=== PATIENT | female | born 1935 | race Caucasian/White ===

== ENCOUNTER 2017-11-06 10:18 | Inpatient (IN) ==
[2017-11-06] MEDS ORDERED: 0.9 % Sodium Chloride 1,000 ML IVC ONE ×2 (10:30→19:46)
[2017-11-06 11:10] LABS: Red Cell Distribution Width 17.9 % (11.5-14.5)
[2017-11-06 11:12] LABS: Hematocrit 19.3 % (35.3-44.9); Lymphocytes # 0.6 K/mcL (0.6-4.6); Mean Corpuscular HGB Conc 30.1 g/dL (31.6-35.5); Mean Corpuscular Hemoglobin 29.3 pg (28.0-33.3); Mean Corpuscular Volume 97.5 fL (83.0-100.0); Mean Platelet Volume 11.3 fL (9.4-12.4); Platelet Count 231 K/mcL (140-400); Red Blood Count 1.98 M/mcL (3.82-4.97)
[2017-11-06 11:25] LABS: INR 5.8; Prothrombin Time 64.3 Seconds (9.4-12.1)
[2017-11-06 11:28] LABS: Albumin/Globulin Ratio 1.1 (1.1-2.2); Bilirubin,Total 0.3 mg/dL (0.3-1.0); Calcium 8.7 mg/dL (8.6-10.3); Globulin 2.7 g/dL (2.4-3.5); Magnesium 2.2 mg/dL (1.6-2.6); Potassium 3.7 mEq/L (3.5-5.1); Total Protein 5.7 g/dL (6.4-8.9)
[2017-11-06 11:32] LABS: Hemoglobin 5.8 g/dL (11.5-15.4)
--- NOTE | 2017-11-06 11:45 | Emergency Department Note ---
Disposition Clinical Impression: Severe anemia, Elevated troponin I level, Anemia due to blood loss GI bleed Qualifiers: GI bleed type/associated pathology: melena Qualified Code(s): K92.1 - Melena Fracture, ribs Qualifiers: Encounter type: initial encounter Rib fracture type: multiple ribs Fracture type: closed Laterality: right Qualified Code(s): S22.41XA - Multiple fractures of ribs, right side, initial encounter for closed fracture Disposition: Admitted As Inpatient Condition: Serious Time of Disposition: 15:24 General Adult HPI - General Chief complaint: ED Dizziness Stated complaint: dizzy Time Seen by Provider: 11/06/17 10:30 Source: patient, EMS Limitations: physical limitation Nursing Notes Reviewed: Yes Vital Signs Reviewed: Yes - History of Present Illness HPI Narrative: 82-year-old female presents after fall at home secondary to dizziness. Patient fell down on her bottom. Did not hit her head, no loss of consciousness. Patient has a history of uterine cancer, lung cancer and bladder cancer. Patient's been complaining of black stools for the past several days. Patient denies any abdominal pain. Pain Scale: 2 - Related Data Home Medications Medication Instructions Recorded Confirmed Albuterol Sulfate [Albuterol 2 puff IH Q4H PRN 11/06/17 11/06/17 Inhaler] Calcitriol [Rocaltrol] 0.25 mcg PO Q48H 11/06/17 11/06/17 Cyanocobalamin (Vitamin B-12) 1,000 mcg PO DAILY 11/06/17 11/06/17 [Vitamin B12] Ergocalciferol (VITAMIN D2) 50,000 unit PO QWEEK 11/06/17 11/06/17 [Vitamin D2] Fluticasone Propionate [Flovent 1 puff IH BID 11/06/17 11/06/17 Hfa] Montelukast [Singulair] 10 mg PO DAILY 11/06/17 11/06/17 Omeprazole [PriLOSEC] 20 mg PO DAILY 11/06/17 11/06/17 Salmeterol Xinafoate [Serevent 1 puff IH Q12H 11/06/17 11/06/17 Diskus] Warfarin [Coumadin] 3 mg PO DAILY 11/06/17 11/06/17 Allergies Allergy/AdvReac Type Severity Reaction Status Date / Time Penicillins Allergy See Verified 12/04/16 11:00 Comments prednisone Allergy See Verified 12/04/16 11:00 Comments All systems ED: reviewed and negative except as stated. Review of Systems: As Per HPI Constitutional: Reports: weakness. Denies: fever Eyes: Denies: vision change ENT ED: Denies: congestion Cardiovascular: Denies: palpitations Respiratory: Denies: cough, dyspnea, wheezes, hemoptysis Gastrointestinal: Denies: abdominal pain, nausea, vomiting Genitourinary: Reports: hematuria. Denies: urgency, dysuria Musculoskeletal: Denies: back pain Integumentary: Denies: rash Neurological: Denies: headache Psychiatric: Denies: anxiety Endocrine: Reports: fatigue Past Medical History - Past Medical History Attestation: Yes The following information was validated with the patient. Source: patient, nursing notes reviewed Medical history: Reports: cancer, DVT, hypertension, pulmonary embolus Surgical history: Reports: cancer surgery, IVC filter Psychiatric history: Reports: no psych history - Social History Smoking Status: Former smoker Smokeless Tobacco Status: No Alcohol use: Reports: none Drug use: Reports: none Physical Exam Vital Signs Temperature 97.4 F L 11/06/17 10:22 Pulse Rate 87 11/06/17 10:22 Respiratory Rate 18 11/06/17 10:22 Blood Pressure 120/66 11/06/17 10:22 O2 Sat by Pulse Oximetry 98 11/06/17 10:22 Temperature 97.8 F 11/06/17 15:11 Pulse Rate 91 11/06/17 15:11 Respiratory Rate 20 11/06/17 15:11 Blood Pressure 138/72 11/06/17 15:11 O2 Sat by Pulse Oximetry 100 11/06/17 13:59 Oxygen Delivery Oxygen Delivery Nasal Cannula 82-year-old female who is alert and oriented 3 and GCS of 15 and in no acute distress. Patient has some visible pallor but nontoxic appearing. Patient's shoulder tenderness to palpation and tender sacrum to palpation. - General Limitations: no limitations, physical limitation General appearance: alert, in no apparent distress - Head Head exam: atraumatic, normocephalic, normal inspection - Eye Eye exam: Present: normal appearance, PERRL, EOMI - ENT ENT exam: normal exam, normal oropharynx, mucous membranes moist - Neck Neck exam: Present: normal inspection, full ROM, trachea midline - Chest Chest inspection: Present: normal inspection, symmetric chest wall rise - Respiratory Respiratory exam: Present: normal lung sounds bilaterally - Cardiovascular Cardiovascular exam: Present: regular rate, normal rhythm, normal heart sounds - Abdominal Exam Abdominal exam: Present: soft, Non-Tender. Absent: tenderness, distention, guarding, rebound, rigidity - Rectal Exam [employer] Operator present during exam: Yes Rectal exam: Present: normal rectal tone, heme (+) stool, black stool, hemorrhoids - Extremities Exam Extremities exam: Present: normal inspection, full ROM. Absent: tenderness, pedal edema - Back Exam Back exam: Present: normal inspection, full ROM. Absent: tenderness, CVA tenderness (R), CVA tenderness (L) Course - Consultations Consultation #1: Dr. Purvis of gastroenterology was brought to speed on the patient's condition. He knows it patient has GI bleed is on Coumadin and has a supratherapeutic INR Time: 15:06 Vital Signs Temperature 97.4 F L 11/06/17 10:22 Pulse Rate 87 11/06/17 10:22 Respiratory Rate 18 11/06/17 10:22 Blood Pressure 120/66 11/06/17 10:22 O2 Sat by Pulse Oximetry 98 11/06/17 10:22 Temperature 97.9 F 11/06/17 15:26 Pulse Rate 90 11/06/17 15:26 Respiratory Rate 20 11/06/17 15:26 Blood Pressure 126/55 11/06/17 15:26 O2 Sat by Pulse Oximetry 99 11/06/17 15:26 Oxygen Delivery Oxygen Delivery Nasal Cannula Medical Decision Making - [facility] Narrative Medical decision making narrative: Patient presents after a fall instigated by dizziness at home. Patient did not hit her head. Patient came down on her bottom. Patient has a history of osteoporosis. Imaging of T-spine L spine, ribs and pelvis ordered. Patient does have a significant history of neoplasm of the uterus, lung status post lobectomy and bladder currently under treatment. Patient also has history of osteoporosis. Physical exam showed melanotic stool. Fecal occult blood test positive. X-ray shows: Decreased bone mineral density. Questionable nondisplaced right anterior 8th and 9th rib fractures. Hemoglobin came back 5.6. Transfusion 2 units RBCs ordered. Patient still doing well. Delay and management secondary to unable to get peripheral line. Par glide ordered and installed. Treatment has been initiated at IVs normosaline 2 L. PT/INR shows a supratherapeutic INR of 5.8. Patient also has an elevated troponin 0.04 Patient still not having any pain. Plan is for admission. Patient excepts decision for admission Dr. Galarza the hospital as accepted patient for admission Dr. Tripathi of gastroenterology is on board. - Lab Data Lab results reviewed: Yes I reviewed the patient's lab results. Lab results narrative: Short CBC 11/06/17 Range/Units 11:00 WBC 9.4 (4.3-11.1) K/mcL Hgb 5.8 L* (11.5-15.4) g/dL Hct 19.3 L (35.3-44.9) % Plt Count 231 (140-400) K/mcL Neutrophils # 7.9 (1.6-8.9) K/mcL BMP 11/06/17 Range/Units 11:00 Sodium 136 (136-145) mEq/L Potassium 3.7 (3.5-5.1) mEq/L Chloride 103 (98-107) mEq/L Carbon Dioxide 26 (23-29) mEq/L BUN 52 H (8-23) mg/dL Creatinine 2.76 H (0.60-1.20) mg/dL Glucose 194 H (70-105) mg/dL Calcium 8.7 (8.6-10.3) mg/dL Cardiac Enzymes 11/06/17 Range/Units 11:00 Troponin I 0.04 H* (< 0.04) ng/mL Liver Function 11/06/17 Range/Units 11:00 Total Bilirubin 0.3 (0.3-1.0) mg/dL AST 18 (13-39) Units/L ALT 11 (7-52) Units/L Alkaline Phosphatase 54 (34-104) Units/L Albumin 3.0 L (3.5-5.7) g/dL Urine 11/06/17 Range/Units 13:43 Urine Color Yellow (Yellow) Urine Clarity Turbid A (Clear) Urine pH 5.5 (5.0-8.0) pH Units Ur Specific [place] 1.018 (1.010-1.025) Urine Protein 100 H (Neg-Trace) mg/dL Urine Glucose (UA) Normal (Normal) mg/dL Result diagrams: 11/06/17 11:00 12/19/17 11:00 Lab Results 11/06/17 11/06/17 11/06/17 Range/Units 10:28 11:00 11:00 WBC (4.3-11.1) K/mcL RBC (3.82-4.97) M/mcL Hgb (11.5-15.4) g/dL Hct (35.3-44.9) % MCV (83.0-100.0) fL MCH (28.0-33.3) pg MCHC (31.6-35.5) g/dL RDW (11.5-14.5) % Plt Count (140-400) K/mcL MPV (9.4-12.4) fL Seg Neutrophils % % Lymphocytes % % Monocytes % % Eosinophils % % Neutrophils # (1.6-8.9) K/mcL Lymphocytes # (0.6-4.6) K/mcL Monocytes # (0.0-1.3) K/mcL Eosinophils # (0.0-0.6) K/mcL Platelet Estimate (Normal) Hypochromasia (Not Present) Anisocytosis (Not Present) Microcytosis (Not Present) PT (9.4-12.1) Seconds INR APTT (26.0-36.0) Seconds Sodium 136 (136-145) mEq/L Potassium 3.7 (3.5-5.1) mEq/L Chloride 103 (98-107) mEq/L Carbon Dioxide 26 (23-29) mEq/L BUN 52 H (8-23) mg/dL Creatinine 2.76 H (0.60-1.20) mg/dL Est GFR ( Amer) 20 L (> 60) Est GFR (Non-Af Amer) 16 L (> 60) BUN/Creatinine Ratio 19 (6-26) Glucose 194 H (70-105) mg/dL POC Glucose 167 H (58-89) Calculated Osmolality 301 H (280-300) Lactic Acid 2.2 (0.5-2.2) mmol/L Calcium 8.7 (8.6-10.3) mg/dL Magnesium 2.2 (1.6-2.6) mg/dL Total Bilirubin 0.3 (0.3-1.0) mg/dL AST 18 (13-39) Units/L ALT 11 (7-52) Units/L Alkaline Phosphatase 54 (34-104) Units/L Troponin I (< 0.04) ng/mL Serum Total Protein 5.7 L (6.4-8.9) g/dL Albumin 3.0 L (3.5-5.7) g/dL Globulin 2.7 (2.4-3.5) g/dL Albumin/Globulin Ratio 1.1 (1.1-2.2) Urine Color (Yellow) Urine Clarity (Clear) Urine pH (5.0-8.0) pH Units Ur Specific [place] (1.010-1.025) Urine Protein (Neg-Trace) mg/dL Urine Glucose (UA) (Normal) mg/dL Urine Ketones (Negative) mg/dL Urine Blood (Negative) Urine Nitrite (Negative) Urine Bilirubin (Negative) Urine Urobilinogen (Normal) mg/dL Ur Leukocyte Esterase (Negative) Urine Microscopic RBC (0-3) per hpf Urine Microscopic WBC (0-3) per hpf Ur Squamous Epith Cells (None-Few) per lpf Urine Bacteria (None-Few) per hpf Urine Mucus (Few) Ur Culture Indicated? (NO) Stool Occult Blood (Negative) Blood Type Antibody Screen Crossmatch 11/06/17 11/06/17 11/06/17 Range/Units 11:00 11:00 11:00 WBC 9.4 (4.3-11.1) K/mcL RBC 1.98 L (3.82-4.97) M/mcL Hgb 5.8 L* (11.5-15.4) g/dL Hct 19.3 L (35.3-44.9) % MCV 97.5 (83.0-100.0) fL MCH 29.3 (28.0-33.3) pg MCHC 30.1 L (31.6-35.5) g/dL RDW 17.9 H (11.5-14.5) % Plt Count 231 (140-400) K/mcL MPV 11.3 (9.4-12.4) fL Seg Neutrophils % 84.0 % Lymphocytes % 6.0 % Monocytes % 6.0 % Eosinophils % 4.0 % Neutrophils # 7.9 (1.6-8.9) K/mcL Lymphocytes # 0.6 (0.6-4.6) K/mcL Monocytes # 0.6 (0.0-1.3) K/mcL Eosinophils # 0.4 (0.0-0.6) K/mcL Platelet Estimate Normal (Normal) Hypochromasia Present A (Not Present) Anisocytosis 1+ A (Not Present) Microcytosis Present A (Not Present) PT 64.3 H* (9.4-12.1) Seconds INR 5.8 H* APTT 49.0 H (26.0-36.0) Seconds Sodium (136-145) mEq/L Potassium (3.5-5.1) mEq/L Chloride (98-107) mEq/L Carbon Dioxide (23-29) mEq/L BUN (8-23) mg/dL Creatinine (0.60-1.20) mg/dL Est GFR ( Amer) (> 60) Est GFR (Non-Af Amer) (> 60) BUN/Creatinine Ratio (6-26) Glucose (70-105) mg/dL POC Glucose (58-89) Calculated Osmolality (280-300) Lactic Acid (0.5-2.2) mmol/L Calcium (8.6-10.3) mg/dL Magnesium (1.6-2.6) mg/dL Total Bilirubin (0.3-1.0) mg/dL AST (13-39) Units/L ALT (7-52) Units/L Alkaline Phosphatase (34-104) Units/L Troponin I 0.04 H* (< 0.04) ng/mL Serum Total Protein (6.4-8.9) g/dL Albumin (3.5-5.7) g/dL Globulin (2.4-3.5) g/dL Albumin/Globulin Ratio (1.1-2.2) Urine Color (Yellow) Urine Clarity (Clear) Urine pH (5.0-8.0) pH Units Ur Specific [place] (1.010-1.025) Urine Protein (Neg-Trace) mg/dL Urine Glucose (UA) (Normal) mg/dL Urine Ketones (Negative) mg/dL Urine Blood (Negative) Urine Nitrite (Negative) Urine Bilirubin (Negative) Urine Urobilinogen (Normal) mg/dL Ur Leukocyte Esterase (Negative) Urine Microscopic RBC (0-3) per hpf Urine Microscopic WBC (0-3) per hpf Ur Squamous Epith Cells (None-Few) per lpf Urine Bacteria (None-Few) per hpf Urine Mucus (Few) Ur Culture Indicated? (NO) Stool Occult Blood (Negative) Blood Type Antibody Screen Crossmatch 11/06/17 11/06/17 11/06/17 Range/Units 11:00 11:40 13:43 WBC (4.3-11.1) K/mcL RBC (3.82-4.97) M/mcL Hgb (11.5-15.4) g/dL Hct (35.3-44.9) % MCV (83.0-100.0) fL MCH (28.0-33.3) pg MCHC (31.6-35.5) g/dL RDW (11.5-14.5) % Plt Count (140-400) K/mcL MPV (9.4-12.4) fL Seg Neutrophils % % Lymphocytes % % Monocytes % % Eosinophils % % Neutrophils # (1.6-8.9) K/mcL Lymphocytes # (0.6-4.6) K/mcL Monocytes # (0.0-1.3) K/mcL Eosinophils # (0.0-0.6) K/mcL Platelet Estimate (Normal) Hypochromasia (Not Present) Anisocytosis (Not Present) Microcytosis (Not Present) PT (9.4-12.1) Seconds INR APTT (26.0-36.0) Seconds Sodium (136-145) mEq/L Potassium (3.5-5.1) mEq/L Chloride (98-107) mEq/L Carbon Dioxide (23-29) mEq/L BUN (8-23) mg/dL Creatinine (0.60-1.20) mg/dL Est GFR ( Amer) (> 60) Est GFR (Non-Af Amer) (> 60) BUN/Creatinine Ratio (6-26) Glucose (70-105) mg/dL POC Glucose (58-89) Calculated Osmolality (280-300) Lactic Acid (0.5-2.2) mmol/L Calcium (8.6-10.3) mg/dL Magnesium (1.6-2.6) mg/dL Total Bilirubin (0.3-1.0) mg/dL AST (13-39) Units/L ALT (7-52) Units/L Alkaline Phosphatase (34-104) Units/L Troponin I (< 0.04) ng/mL Serum Total Protein (6.4-8.9) g/dL Albumin (3.5-5.7) g/dL Globulin (2.4-3.5) g/dL Albumin/Globulin Ratio (1.1-2.2) Urine Color Yellow (Yellow) Urine Clarity Turbid A (Clear) Urine pH 5.5 (5.0-8.0) pH Units Ur Specific [place] 1.018 (1.010-1.025) Urine Protein 100 H (Neg-Trace) mg/dL Urine Glucose (UA) Normal (Normal) mg/dL Urine Ketones Negative (Negative) mg/dL Urine Blood Large H (Negative) Urine Nitrite Negative (Negative) Urine Bilirubin Negative (Negative) Urine Urobilinogen Normal (Normal) mg/dL Ur Leukocyte Esterase Moderate H (Negative) Urine Microscopic RBC TNTC H (0-3) per hpf Urine Microscopic WBC TNTC H (0-3) per hpf Ur Squamous Epith Cells Many H (None-Few) per lpf Urine Bacteria Few (None-Few) per hpf Urine Mucus Few (Few) Ur Culture Indicated? NO (NO) Stool Occult Blood Positive A (Negative) Blood Type O POSITIVE Antibody Screen NEGATIVE Crossmatch See Detail - Radiology Data Radiology results reviewed: Yes I reviewed the patient's radiology results. Chest X-Ray 11/06/17 10:30 IMPRESSION: 1. Decreased bone mineral density. Questionable nondisplaced right anterior 8th and 9th rib fractures. 2. No acute pulmonary process. 3. Stable left hemidiaphragm elevation and lung base scarring. D/ / 11/06/2017 11:51:51 Eugene Hernandez MD / sandro Interpreting Provider: Eugene Hernandez MD Lumbar Spine CT 11/06/17 11:40 IMPRESSION: 1. No acute fractures involving the thoracic or lumbar spine. 2. Incompletely imaged left hydronephrosis. I would suggest CT urography for further evaluation. D/ / Akhil Tang MD / Akhil Tang MD Interpreting Provider: Akhil Tang MD Pelvis X-Ray 11/06/17 11:40 IMPRESSION: No acute osseous abnormality. RECOMMENDATION: Given the degree of osteopenia, nondisplaced fractures may be radiographically occult. If pain or concern for fracture persists, consider MR imaging. D/ / Sage Ha MD / Sage Ha MD Interpreting Provider: Sage Ha MD Thoracic Spine CT 11/06/17 11:40 IMPRESSION: 1. No acute fractures involving the thoracic or lumbar spine. 2. Incompletely imaged left hydronephrosis. I would suggest CT urography for further evaluation. D/ / Akhil Tang MD / Akhil Tang MD Interpreting Provider: Akhil Tang MD - EKG Data EKG #1 EKG attestation: Yes I reviewed and interpreted this EKG. EKG results narrative: EKG taken 11/06/2017 at 1033 hrs. shows sinus rhythm at a rate of 89 beats minute with no acute ST elevations any leads, patient has no depressions in these but has T-wave inversion in aVL which is new when compared to previous EKG taken 11/17/2014 Previous EKG shows sinus rhythm at a rate of 74 bpm Attestation Statement - Attestation Attestation: I, Jimmie Mclean, examined this patient and my medical decision-making was reviewed with the BUFF[employer] SERVER/PA/Advanced Practice Nurse/Resident Physician. I agree with the documented findings, disposition and treatment plan as described except to the extent set forth below. 82-year-old female presents emergency Department with concerns of lightheadedness and weakness. Patient states symptoms started this morning. She does describe having dark stools over the past week. States her last melanotic stool was yesterday. On laboratory evaluation patient has a significantly elevated INR as well as anemia of 5.8. Resident performed rectal exam which shows dark stool on exam which was guaiac positive. Resident spoke with Dr. Tripathi from GI who is aware of the patient and will see while in the hospital. Patient vital signs are stable in the emergency department. She will be admitted to the hospitalist for further care and evaluation. Upon reviewing the patient's chart I had noticed she was not started on vitamin K for reversal of the INR. I spoke with Dr. Tripathi regarding this issue and added vitamin K IV.
[2017-11-06 11:46] LABS: Eosinophils # 0.4 K/mcL (0.0-0.6); Monocytes # 0.6 K/mcL (0.0-1.3); Neutrophils # 7.9 K/mcL (1.6-8.9)
[2017-11-06 12:06] LABS: Anisocytosis 1+ (Not Present); Platelet Estimate Normal (Normal)
[2017-11-06 12:07] LABS: Hypochromasia Present (Not Present); Microcytosis Present (Not Present)
[2017-11-06 13:55] LABS: Bilirubin,Urine Negative (Negative); Blood,Urine Large (Negative); Clarity,Urine Turbid (Clear); Color,Urine Yellow (Yellow); Glucose,Urine (UA) Normal (Normal); Ketones,Urine Negative (Negative); Leukocyte Esterase,Urine Moderate (Negative); Nitrite,Urine Negative (Negative); PH,Urine 5.5 pH Units (5.0-8.0); Protein,Urine 100 mg/dL (Neg-Trace); Specific Gravity,Urine 1.018 (1.010-1.025); Urobilinogen,Urine Normal (Normal)
[2017-11-06 13:57] LABS: RBC,Urine TNTC per hpf (0-3); Squamous Epithelial Cell,Urine Many per lpf (None-Few); WBC,Urine TNTC per hpf (0-3)
[2017-11-06 14:05] LABS: Bacteria,Urine Few per hpf (None-Few); Mucus,Urine Few (Few)
[2017-11-06] MEDS ORDERED: 0.9 % Sodium Chloride 250 ML ONE (15:03)
[2017-11-06] MEDS ORDERED: *HR* Phytonadione 5 MG TABLET PO ONE (15:49)
--- NOTE | 2017-11-06 16:01 | Internal Med History&Physical ---
<Moncho Schneider - Last Filed: 11/06/17 17:20> Date of Encounter: 11/06/17 Time of Encounter: 15:54 Assessment and Plan (1) Anemia due to blood loss Current visit: Yes Status: Acute Last known colonoscopy was 2012 and found external hemorrhoids, diverticulosis, and functional ileo-colonic anastamosis. - S/p cecal [place] [address] Parikh Hgb 5.8 Melanotic stools per ER and patient's HPI Taking Warfarin and INR 5.8 today Vital signs stable Plan: Hold anticoagulation T&S, 2 units given in ED Serial H&Hs Vit K and FFP given - will follow NPO IVF Last ECHO was 11/18/2014 with EF 45-50%, mild , severe mitral annular calcification, mild LV diastolic dysfunction and mild global LV systolic dysfunction - Will have to be careful giving more IVF with valvular disease but patient should tolerate with moderately preserved EF GI consulted - Plan for scope tomorrow PPI Cardiac monitoring (2) Supratherapeutic INR Current visit: Yes Status: Acute Taking Coumadin 3mg qd - holding INR 5.8 ED gave vit K Will add FFP and recheck Will follow closely overnight (3) Acute kidney injury superimposed on chronic kidney disease Current visit: Yes Status: Acute CKD stage IV Appears to be above baseline at admission IVF Recheck in the am (4) GERD (gastroesophageal reflux disease) Current visit: Yes Status: Acute Well controlled at this time. IV PPI for now Qualifiers: Esophagitis presence: without esophagitis Qualified Code(s): K21.9 - Gastro -esophageal reflux disease without esophagitis (5) Recurrent deep vein thrombosis (DVT) Current visit: Yes Status: Chronic Patient taking warfarin 3mg daily. Holding at this time (6) COPD (chronic obstructive pulmonary disease) Current visit: Yes Status: Chronic Stable at admission PRN duonebs for now Qualifiers: COPD type: unspecified COPD Qualified Code(s): J44.9 - Chronic obstructive pulmonary disease, unspecified (7) HTN (hypertension) Current visit: Yes Status: Acute Well controlled at this time. No medications for this per EMR Qualifiers: Hypertension type: essential hypertension Qualified Code(s): I10 - Essential (primary) hypertension (8) DVT prophylaxis Current visit: Yes Status: Acute Holding anticoagulation d/t supratherapeutic INR and acute GI bleed EPCDs for now Internal Medicine - H&P: HPI Chief complaint: lighheadedness Admitted From: Home Plans for Post Hospital Care: Home History of present illness: Ms. Jim is a very pleasant 82 year old female with a past medical history of recurrent DVT on Coumadin, uterine/bladder cancer s/p treatment, lung cancer s/p lobectomy, cecal cancer s/p cecal resection, COPD, HTN, GERD, osteoporosis and CKD who presents to the [facility] Emergency Department with a chief complaint of lightheadedness. She states that she had fall at home today after feeling "dizzy". Patient fell to her buttocks. No LOC reported and no history of this previously. On arrival to the emergency department, her vital signs were stable, INR 5.8, PT 64, hgb 5.8 and trop 0.04. Stool occult blood positive with melanotic stools on exam. EKG unremarkable. She was given IVF, 2 units of PRBC and Vit K. GI consulted. On evaluation, she states that she is taking her Warfarin 3mg as directed. She goes on to state that she has been experiencing darl colored stools. No hemoptysis or hematochezia. Last known ECHO was 11/18/2014 with EF 45-50%, mild , severe mitral annular calcification, mild LV diastolic dysfunction and mild global LV systolic dysfunction. Most recent colonscopy was in 2012 and found external hemorrhoids, diverticulosis, and functional ileo-colonic anastamosis. We will admit patient to ICU for further workup and intervention. Past Med Surg Social Fam HX - Past Medical History Medical history: cancer, DVT, hypertension, pulmonary embolus Psychiatric history: no psych history - Past Surgical History Surgical History: cancer surgery, IVC filter - Social History Smoking Status: Former smoker Smokeless Tobacco Status: No Alcohol use: none Drug use: none Internal Medicine - H&P: Meds Albuterol Sulfate [Albuterol Inhaler] 2 puff IH Q4H PRN 11/06/17 [History] Calcitriol [Rocaltrol] 0.25 mcg PO Q48H 11/06/17 [History] Cyanocobalamin (Vitamin B-12) [Vitamin B12] 1,000 mcg PO DAILY 11/06/17 [History ] Ergocalciferol (VITAMIN D2) [Vitamin D2] 50,000 unit PO QWEEK 11/06/17 [History] Fluticasone Propionate [Flovent Hfa] 1 puff IH BID 11/06/17 [History] Montelukast [Singulair] 10 mg PO DAILY 11/06/17 [History] Omeprazole [PriLOSEC] 20 mg PO DAILY 11/06/17 [History] Salmeterol Xinafoate [Serevent Diskus] 1 puff IH Q12H 11/06/17 [History] Warfarin [Coumadin] 3 mg PO DAILY 11/06/17 [History] 3 Allergy/AdvReac Type Severity Reaction Status Date / Time Penicillins Allergy See Verified 12/04/16 11:00 Comments prednisone Allergy See Verified 12/04/16 11:00 Comments All Systems PM: A 10-system review of systems was performed and is negative for pertinent findings except as documented above in the HPI. - EENT Eyes: no blurry vision Nose, mouth and throat: no bleeding gums, no epistaxis - Cardiovascular Cardiovascular ROS IM: no chest pain, no dyspnea - Respiratory Respiratory: no cough - Gastrointestinal Gastrointestinal: abdominal pain (chronic from incisional hernia) - Genitourinary Genitourinary: no dysuria - Musculoskeletal Musculoskeletal ROS IM: arthralgias - Integumentary Integumentary IM: no new lesions - Neurological Neurological ROS: weakness, no frequent falls, no headache(s) - Psychiatric Psychiatric: no behavioral changes - Endocrine Endocrine IM: no fatigue - Hematologic/Lymphatic Hematologic/Lymphatic: easy bruising - Constitutional Vitals: Temp Pulse Resp BP Pulse Ox 97.9 F 90 20 126/55 99 11/06/17 15:26 11/06/17 15:26 11/06/17 15:26 11/06/17 15:26 11/06/17 15:26 General appearance: Present: cooperative, A&O X 3, no acute distress, answers questions appropriately - Head Head exam: Present: atraumatic, normocephalic - Eye Eye exam: Present: EOMI, sclera anicteric. Absent: conjuntiva pink - Neck Neck exam general surgery: Present: supple, trachea midline - Respiratory Respiratory exam: Present: CTAB. Absent: respiratory distress - Cardiovascular Cardiovascular exam: Present: RRR, systolic murmur - GI/Abdominal GI/Abdominal exam: Present: hernia (incisional), normal bowel sounds. Absent: guarding, tenderness - Extremities Exam Extremities exam: Present: warm. Absent: calf tenderness, normal inspection ( ecchymosis), pedal edema, tenderness - Neurological Exam Neurological exam: Present: alert, oriented X3, no focal deficits - Psychiatric Psychiatric exam: Present: normal affect, normal mood - Skin Skin exam: Present: dry, warm. Absent: cyanosis, diaphoretic Internal Med - H&P Results - Labs CBC & Chem 7: 11/06/17 11:00 11/06/17 11:00 <Rogelio Ayala - Last Filed: 11/06/17 18:40> Date of Encounter: 11/06/17 Internal Medicine - H&P: HPI History of present illness: Ms. Jim is a 82 year old female All Systems PM: A 10-system review of systems was performed and is negative for pertinent findings except as documented above in the HPI. - Constitutional Vitals: Temp Pulse Resp BP Pulse Ox 97.6 F 77 20 155/69 97 11/06/17 18:25 11/06/17 18:25 11/06/17 18:25 11/06/17 18:25 11/06/17 18:25 Internal Med - H&P Results - Labs CBC & Chem 7: 11/06/17 11:00 11/06/17 11:00 - Attending Attestation I conducted a face to face diagnostic evaluation of this patient and my medical decision-making was reviewed with the Resident Physician, Dr Moncho Schneider. I agree with the documented findings, disposition and treatment plan as described except to the extent set forth below: Patient reports melena for several weeks. Today she has felt severely dizzy, lightheaded described as spinning sensation, her symptoms have progressively gotten worse over the last few days. Evaluation in the emergency department her hemoglobin was found to be 5.8 and her INR was 5.8. On my evaluation blood pressure is within normal limits. Heart is regular with normal S1 and S2 and a 4/6 diastolic murmur. Abdomen is soft nontender nondistended. Plan: Transfuse FFP and packed red blood cells. Patient received IV vitamin K. Hold antiplatelets and antithrombotic's. Continue nothing by mouth. Consult GI. Rogelio Ayala MD
[2017-11-06] MEDS ORDERED: Ondansetron 4 MG/2 ML VIAL IVP PRN (17:33)
[2017-11-06] MEDS ORDERED: Naloxone 0.4 MG/ML INJ IVP PRN (17:33)
[2017-11-06] MEDS ORDERED: Acetaminophen 325 MG TABLET PO PRN (17:33)
[2017-11-06] MEDS ORDERED: Ipratropium/Albuterol Neb 3 ML IH PRN (17:43)
[2017-11-06] MEDS ORDERED: 0.9 % Sodium Chloride 1,000 ML IVC SCH (17:45)
[2017-11-06] MEDS: Pantoprazole 40 MG VIAL IVPB SCH (18:06)
[2017-11-06] MEDS ORDERED: 0.9 % Sodium Chloride 500 ML ONE (18:42)
[2017-11-07 00:34] LABS: Hematocrit 25.2 % (35.3-44.9)
[2017-11-07 04:33] LABS: Hematocrit 26.3 % (35.3-44.9); Hemoglobin 8.4 g/dL (11.5-15.4); Mean Corpuscular HGB Conc 31.9 g/dL (31.6-35.5); Mean Corpuscular Hemoglobin 30.2 pg (28.0-33.3); Mean Corpuscular Volume 94.6 fL (83.0-100.0); Platelet Count 195 K/mcL (140-400); Red Blood Count 2.78 M/mcL (3.82-4.97); Red Cell Distribution Width 17.2 % (11.5-14.5)
[2017-11-07 04:46] LABS: INR 1.3; Prothrombin Time 13.7 Seconds (9.4-12.1)
[2017-11-07 05:17] LABS: Calcium 8.6 mg/dL (8.6-10.3); Potassium 4.2 mEq/L (3.5-5.1)
[2017-11-07] MEDS: Pantoprazole 40 MG VIAL IVPB SCH ×2 (05:26→17:56)
--- NOTE | 2017-11-07 09:00 | Internal Med Progress Note ---
<Moncho Schneider - Last Filed: 11/07/17 11:32> Date of Encounter: 11/07/17 Time of Encounter: 08:58 - Assessment and plan (1) Anemia due to blood loss Current Visit: Yes Status: Acute Assessment and plan: Last known colonoscopy was 2012 and found external hemorrhoids, diverticulosis, and functional ileo-colonic anastamosis. - S/p cecal [place] [address] Parikh Hgb 5.8 to 8.4 today INR 5.8 down to 1.3 Vital signs stable Plan: Hold anticoagulation until GI consult - Likely scope today NPO IVF PPI Cardiac monitoring director of patient financial services consulted for evaluation with ECF vs HH to aid with medications Transfer to today (2) Supratherapeutic INR Current Visit: Yes Status: Acute Assessment and plan: Taking Coumadin 3mg qd - holding Vit K and FFP given INR 5.8 down to 1.3 (3) Acute kidney injury superimposed on chronic kidney disease Current Visit: Yes Status: Acute Assessment and plan: CKD stage IV Cr improved with 2.76 to 2.38 Will continue to follow (4) GERD (gastroesophageal reflux disease) Current Visit: Yes Status: Acute Assessment and plan: Well controlled at this time. IV PPI for now Qualifiers: Esophagitis presence: without esophagitis Qualified Code(s): K21.9 - Gastro -esophageal reflux disease without esophagitis (5) Recurrent deep vein thrombosis (DVT) Current Visit: Yes Status: Chronic Assessment and plan: Patient taking warfarin 3mg daily. Holding at this time (6) COPD (chronic obstructive pulmonary disease) Current Visit: Yes Status: Chronic Assessment and plan: Appears to be stable at this time PRN jose armando for now Qualifiers: COPD type: unspecified COPD Qualified Code(s): J44.9 - Chronic obstructive pulmonary disease, unspecified (7) HTN (hypertension) Current Visit: Yes Status: Acute Assessment and plan: Well controlled at this time. No medications for this per EMR Qualifiers: Hypertension type: essential hypertension Qualified Code(s): I10 - Essential (primary) hypertension (8) DVT prophylaxis Current Visit: Yes Status: Acute Assessment and plan: Holding anticoagulation d/t supratherapeutic INR and acute GI bleed EPCDs for now - Subjective Interval history: Patient is resting comfortably in bed this morning. No overnight events per nursing. No BM since admission. She has been ambulatory to chair and back to bed last night. Patient is requesting to be discharged. She is agreeable to GI scope today - Constitutional Vitals: Temp Pulse Resp BP Pulse Ox 97.4 F L 74 16 127/78 100 11/07/17 05:01 11/07/17 08:41 11/07/17 08:00 11/07/17 08:00 11/07/17 08:00 General appearance: Present: cooperative, A&O X 3, no acute distress, answers questions appropriately - Head Head exam: Present: atraumatic, normocephalic - Eye Eye exam: Present: EOMI, conjuntiva pink, sclera anicteric - ENT ENT exam: Present: mucous membranes moist - Neck Neck exam general surgery: Present: supple, trachea midline - Respiratory Respiratory exam: Present: CTAB. Absent: respiratory distress - Cardiovascular Cardiovascular exam: Present: RRR, systolic murmur - GI/Abdominal GI/Abdominal exam: Present: hernia (incisional), normal bowel sounds. Absent: tenderness - Extremities Exam Extremities exam: Present: normal inspection, warm. Absent: calf tenderness, tenderness - Neurological Exam Neurological exam: Present: alert, oriented X3, no focal deficits - Psychiatric Psychiatric exam: Present: normal affect, normal mood - Skin Skin exam: Present: dry, warm Internal Medicine: Result - Labs CBC & Chem 7: 11/07/17 04:13 11/07/17 04:13 Labs: Short CBC 11/07/17 11/07/17 Range/Units 00:25 04:13 WBC 9.6 (4.3-11.1) K/mcL Hgb 8.0 L D 8.4 L (11.5-15.4) g/dL Hct 25.2 L 26.3 L (35.3-44.9) % Plt Count 195 (140-400) K/mcL BMP 11/07/17 04:13 Sodium 140 Potassium 4.2 Chloride 105 Carbon Dioxide 30 H BUN 44 H Creatinine 2.38 H Glucose 89 Calcium 8.6 - ABG Interpretation ABG results: PT/INR, D-dimer PT 13.7 Seconds (9.4-12.1) H D 11/07/17 04:13 Consult Discharge Plan - Plan Referrals: Oni Olvera MD [Primary Care Provider] - <Rogelio Ayala - Last Filed: 11/07/17 18:14> Date of Encounter: 11/07/17 - Constitutional Vitals: Temp Pulse Resp BP Pulse Ox 97.4 F L 75 16 129/66 100 11/07/17 16:30 11/07/17 16:22 11/07/17 16:00 11/07/17 16:00 11/07/17 16:00 Internal Medicine: Result - Labs CBC & Chem 7: 11/07/17 04:13 11/07/17 04:13 Labs: Short CBC 11/07/17 11/07/17 Range/Units 00:25 04:13 WBC 9.6 (4.3-11.1) K/mcL Hgb 8.0 L D 8.4 L (11.5-15.4) g/dL Hct 25.2 L 26.3 L (35.3-44.9) % Plt Count 195 (140-400) K/mcL BMP 11/07/17 04:13 Sodium 140 Potassium 4.2 Chloride 105 Carbon Dioxide 30 H BUN 44 H Creatinine 2.38 H Glucose 89 Calcium 8.6 - ABG Interpretation ABG results: PT/INR, D-dimer PT 13.7 Seconds (9.4-12.1) H D 11/07/17 04:13 - Attending Attestation I conducted a face to face diagnostic evaluation of this patient and my medical decision-making was reviewed with the Resident Physician, Dr Moncho Schneider. I agree with the documented findings, disposition and treatment plan as described except to the extent set forth below: Today the patient is in no acute distress. Heart is irregular. Lungs are clear. Abdomen soft. There is incisional right upper quadrant hernia. Follow-up with GI for EGD. Hold Coumadin. Hold antiplatelets. Continue with IV fluids. Nothing by mouth. Protonix. Patient expressed her wish to not receive resuscitation or mechanical ventilation in case of cardiac or respiratory arrest. Upon my evaluation she has decision-making capacity. Rogelio Ayala MD
[2017-11-07] MEDS ORDERED: Ondansetron 4 MG/2 ML VIAL IVP PRN (11:50)
[2017-11-07] MEDS ORDERED: Ipratropium/Albuterol Neb 3 ML IH PRN (11:50)
[2017-11-07] MEDS ORDERED: Acetaminophen 325 MG TABLET PO PRN (11:50)
[2017-11-07] MEDS ORDERED: Naloxone 0.4 MG/ML INJ IVP PRN (11:50)
--- NOTE | 2017-11-07 12:30 | Gastroenterology Consult Note ---
<Madeleine Naranjo - Last Filed: 11/07/17 12:27> Date of Encounter: 11/07/17 Time of Encounter: 11:00 - Assessment and plan (1) Gastrointestinal hemorrhage with melena Current Visit: Yes Status: Acute Assessment and plan: Pt is on chronic anticoagulation for history of recurrent DVTs. She has 3-4 month history of black stools. She presents with near syncopal episode and was found to have a Hgb 5.8 and INR of 5.8, she was given Vit K and FFP and INR is now 1.3. She has been transfused. She needs EGD today may need colonoscopy if source of bleeding not found. (2) Anemia due to blood loss Current Visit: Yes Status: Acute - Time Spent With Patient Total time spent is greater than 50% in coordination of care (as documented) at patient's floor/unit and/or counseling patient: GI History of Present Illness - Data of Consult Patient: new to practice Consult date: 11/07/17 Requesting Physician: Rogelio Ayala MD - Consult Narrative Reason for consult: anemia History of present illness: Ms. Jim is a 82 year old female with a pmhx of recurrent DVT on Coumadin, uterine/bladder cancer s/p treatment, lung cancer s/p lobectomy, cecal cancer s/ p cecal resection, COPD, HTN, GERD, osteoporosis and CKD who presents with a chief complaint of lightheadedness. She states that she had fall at home today after feeling "dizzy". Patient fell to her buttocks. No LOC reported and no history of this previously. She was found to have a hgb of 5.8 and INR of 5.8 on admission and trop 0.04. Stool occult blood positive. She denies any bright red rectal bleeding but does report black stools for the past 3-4 months. She was given IVF, 2 units of PRBC and Vit K. She denies hemoptysis or hematochezia. She denies abdominal pain, nausea, vomiting, diarrhea or constipation. Colonoscopy: 2013 external hemorrhoids, diverticulosis, and functional ileo- colonic anastamosis. EGD: dneies NSAIDS/ASA: denies Anticoagulants: coumadin Past Med Surg Social Fam HX - Past Medical History Medical history: cancer, DVT, hypertension, pulmonary embolus Psychiatric history: no psych history - Past Surgical History Surgical History: cancer surgery, IVC filter - Social History Smoking Status: Former smoker Smokeless Tobacco Status: No Alcohol use: none Drug use: none Review of Systems: GI: as per CIRCLE GENERAL: denies fever, has some chills EYES: denies yellow discoloration ENT: denies pain with swallowing or difficulty swallowing CARDIO: denies chest pain, palpitations RESP: No Shortness of breath with exertion : denies change in color of urine NEURO: weakness and recent dizziness HEME: chronic bruising MS: denies joint pain, joint swelling or back pain. DERM: denies rash or itching PSYCH: Denies history of anxiety or depression - Constitutional Vitals: Temp Pulse Resp BP Pulse Ox 97.9 F 74 18 135/65 100 11/07/17 11:00 11/07/17 11:56 11/07/17 11:00 11/07/17 11:00 11/07/17 11:00 Exam: CONSTITUTIONAL:~alert, no acute distress.~HEAD:~normocephalic.~EYES:~no jaundice.~NECK:~no obvious swelling.~HEART:~regular rate and rhythm, murmur noted, ~LUNGS:~bilateral good air entry.~ABDOMEN:~non distended, soft, tender RUQ, RUQ scar and incisional hernia noted, no organomegaly.~RECTAL EXAM:~ Deferred.~EXTREMITIES:~no clubbing, cyanosis or edema.~SKIN:~no stigmata of chronic liver disease.~NEUROLOGIC:~no obvious focal defect.~~~~ Results - Labs CBC & Chem 7: 11/07/17 04:13 11/07/17 04:13 Labs: Last Result Calcium 8.6 mg/dL (8.6-10.3) 11/07/17 04:13 Troponin I 0.04 ng/mL (< 0.04) H* 11/06/17 11:00 Stool Occult Blood Positive (Negative) A 11/06/17 11:40 Entire Visit Hgb 8.4 g/dL (11.5-15.4) L 11/07/17 04:13 Hct 26.3 % (35.3-44.9) L 11/07/17 04:13 PT 13.7 Seconds (9.4-12.1) H D 11/07/17 04:13 Total Bilirubin 0.3 mg/dL (0.3-1.0) 11/06/17 11:00 AST 18 Units/L (13-39) 11/06/17 11:00 ALT 11 Units/L (7-52) 11/06/17 11:00 - ABG ABG results: PT/INR, D-dimer PT 13.7 Seconds (9.4-12.1) H D 11/07/17 04:13 Consult Discharge Plan - Plan Referrals: Oni Olvera MD [Primary Care Provider] - <Meggan Jimenez - Last Filed: 11/07/17 14:30> Date of Encounter: 11/07/17 Time of Encounter: 12:30 - Time Spent With Patient Total time spent is greater than 50% in coordination of care (as documented) at patient's floor/unit and/or counseling patient: GI History of Present Illness - Data of Consult Requesting Physician: Rogelio Ayala MD - Consult Narrative History of present illness: Ms. Jim is a 82 year old female - Constitutional Vitals: Temp Pulse Resp BP Pulse Ox 97.9 F 74 18 135/65 100 11/07/17 11:00 11/07/17 11:56 11/07/17 11:00 11/07/17 11:00 11/07/17 11:00 Results - Labs CBC & Chem 7: 11/07/17 04:13 11/07/17 04:13 Labs: Last Result Calcium 8.6 mg/dL (8.6-10.3) 11/07/17 04:13 Troponin I 0.04 ng/mL (< 0.04) H* 11/06/17 11:00 Stool Occult Blood Positive (Negative) A 11/06/17 11:40 Entire Visit Hgb 8.4 g/dL (11.5-15.4) L 11/07/17 04:13 Hct 26.3 % (35.3-44.9) L 11/07/17 04:13 PT 13.7 Seconds (9.4-12.1) H D 11/07/17 04:13 Total Bilirubin 0.3 mg/dL (0.3-1.0) 11/06/17 11:00 AST 18 Units/L (13-39) 11/06/17 11:00 ALT 11 Units/L (7-52) 11/06/17 11:00 - ABG ABG results: PT/INR, D-dimer PT 13.7 Seconds (9.4-12.1) H D 11/07/17 04:13 - Attending Attestation I examined this patient and my medical decision-making was reviewed with the Resident Physician. I agree with the documented findings, disposition and treatment plan as described except to the extent set forth below. Patient with multiple comorbidities including history of colon resection now with the severe anemia with black stool. On presentation her INR was supratherapeutic but now today's 1.3 and on rectal examination she still has black stool. Rec: EGD today and if the EGD is negative then she will need a colonoscopy
[2017-11-07] MEDS ORDERED: *HR* Midazolam HCl 5 MG/5 ML VIAL IVP ONE ×2 (12:33→12:35)
[2017-11-07] MEDS ORDERED: *HR* FentaNYL (PF) 100 MCG/2 ML VIAL ONE (12:33)
[2017-11-07] MEDS ORDERED: Tetracaine/Benzocaine/Butamben 200MG/SPRAY (100SPY/BOT) MM ONE (12:35)
[2017-11-07] MEDS ORDERED: *HR* FentaNYL (PF) 100 MCG/2 ML VIAL IVP ONE (12:35)
[2017-11-07] MEDS ORDERED: Polyethylene Glycol 3350 255 GM POWDER PO ONE (14:03)
--- NOTE | 2017-11-07 14:23 | Pre-Sedation Evaluation ---
Pre-sedation evaluation - Pre-sedation checklist Date of procedure: 11/07/17 Recent Vitals: Last Vital Signs Temp 97.9 F 11/07/17 11:00 Pulse 74 11/07/17 11:56 Resp 18 11/07/17 11:00 BP 135/65 11/07/17 11:00 Pulse Ox 100 11/07/17 11:00 ASA Classification *see protocol: CLASS III-Severe systemic disease Plan of Care: Pt appropriate candidate for procedure/moderate/conscious sedation , Risks/benefits of procedure/sedation discussed w/ patient/family
--- NOTE | 2017-11-07 18:34 | Electrocardiograph Report ---
[place] [id number] Test Date: 2017-11-06 Pat Name: Maria Del Rosario Jim Department: 103 Room: 3A12 Gender: F [employer]: EBER : [id number] Requested By: Rene Luna Order Number: [id number] Reading MD: Fito Simental DO Measurements Intervals [place] Rate: 89 P: 33 ME: 172 QRS: -29 QRSD: 119 T: 84 QT: 374 QTc: 421 Interpretive Statements SINUS RHYTHM BORDERLINE LEFT AXIS DEVIATION LEFT VENTRICULAR HYPERTROPHY AND ST-T CHANGE Electronically Signed On 11-07-2017 18:32:23 EST by iFto Simental DO
[2017-11-07] MEDS ORDERED: 0.9 % Sodium Chloride 1,000 ML IVC SCH (23:15)
[2017-11-08 05:40] LABS: Basophils # 0.1 K/mcL (0.0-0.2); Basophils % 0.7 %; Eosinophils # 0.5 K/mcL (0.0-0.6); Eosinophils % 7.8 %; Hematocrit 25.2 % (35.3-44.9); Hemoglobin 7.9 g/dL (11.5-15.4); Immature Granulocytes % 0.3 % (0-4); Lymphocytes # 0.8 K/mcL (0.6-4.6); Lymphocytes % 11.5 %; Mean Corpuscular HGB Conc 31.3 g/dL (31.6-35.5); Mean Corpuscular Volume 95.8 fL (83.0-100.0); Mean Platelet Volume 11.4 fL (9.4-12.4); Monocytes % 14.8 %; Neutrophils # 4.4 K/mcL (1.6-8.9); Platelet Count 186 K/mcL (140-400); Red Blood Count 2.63 M/mcL (3.82-4.97); Segmented Neutrophils % 64.9 %
[2017-11-08 05:45] LABS: INR 1.2; Prothrombin Time 12.5 Seconds (9.4-12.1)
[2017-11-08 06:05] LABS: Calcium 8.2 mg/dL (8.6-10.3)
[2017-11-08] MEDS: Pantoprazole 40 MG VIAL IVPB SCH (06:05)
--- NOTE | 2017-11-08 07:46 | Internal Med Progress Note ---
<Moncho Schneider - Last Filed: 11/08/17 13:02> Date of Encounter: 11/08/17 Time of Encounter: 07:46 - Assessment and plan (1) Anemia due to blood loss Status: Acute Assessment and plan: Last known colonoscopy was 2012 and found external hemorrhoids, diverticulosis, and functional ileo-colonic anastamosis. - S/p cecal [place] [address] Parikh Hgb stable at 7.9, slight decrease from 8.4 yesterday Vital signs stable INR 1.2 Plan: Upper/lower scope today Hold anticoagulation NPO IVF PPI Cardiac monitoring Discharge planning: Likely home with [facility]. SW following. (2) Supratherapeutic INR Status: Acute Assessment and plan: Taking Coumadin 3mg qd - holding Vit K and FFP given INR stable at 1.2 Continue to hold coumadin (3) Acute kidney injury superimposed on chronic kidney disease Status: Acute Assessment and plan: CKD stage IV Cr improved with 2.76 > 2.38 > 2. 18 Continue gentle IVF Will continue to follow (4) GERD (gastroesophageal reflux disease) Status: Acute Assessment and plan: Well controlled at this time. 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 Holding at this time (6) COPD (chronic obstructive pulmonary disease) Status: Chronic Assessment and plan: Appears to be stable at this time PRN duonebs for now Qualifiers: COPD type: unspecified COPD Qualified Code(s): J44.9 - Chronic obstructive pulmonary disease, unspecified (7) HTN (hypertension) Status: Acute Assessment and plan: Well controlled at this time. No medications for this per EMR Qualifiers: Hypertension type: essential hypertension Qualified Code(s): I10 - Essential (primary) hypertension (8) DVT prophylaxis Status: Acute Assessment and plan: Holding anticoagulation EPCDs for now - Subjective Interval history: Patient is resting comfortably in bed this morning. No overnight events per nursing. She has been ambulatory to chair and back to bed last night. Patient is again requesting to be discharged. Plan for upper/lower scope today - Constitutional Vitals: Temp Pulse Resp BP Pulse Ox 98.0 F 76 14 122/78 99 12/21/17 06:47 11/08/17 06:47 11/08/17 06:47 11/08/17 06:47 11/08/17 06:47 General appearance: Present: cooperative, A&O X 3, no acute distress, answers questions appropriately - Head Head exam: Present: atraumatic, normocephalic - Eye Eye exam: Present: EOMI, normal appearance, conjuntiva pink, sclera anicteric - ENT ENT exam: Present: mucous membranes moist - Neck Neck exam general surgery: Present: supple, trachea midline - Respiratory Respiratory exam: Present: CTAB. Absent: respiratory distress - Cardiovascular Cardiovascular exam: Present: RRR, systolic murmur - GI/Abdominal GI/Abdominal exam: Present: normal bowel sounds, soft. Absent: tenderness - Extremities Exam Extremities exam: Present: warm. Absent: calf tenderness, pedal edema, tenderness - Neurological Exam Neurological exam: Present: alert, oriented X3, no focal deficits - Psychiatric Psychiatric exam: Present: normal affect, normal mood - Skin Skin exam: Present: dry, warm. Absent: cyanosis Internal Medicine: Result - Labs CBC & Chem 7: 11/08/17 04:43 11/08/17 04:43 Labs: Short CBC 11/08/17 Range/Units 04:43 WBC 6.7 (4.3-11.1) K/mcL Hgb 7.9 L (11.5-15.4) g/dL Hct 25.2 L (35.3-44.9) % Plt Count 186 (140-400) K/mcL Neutrophils # 4.4 (1.6-8.9) K/mcL BMP 11/08/17 04:43 Sodium 142 Potassium 4.0 Chloride 106 Carbon Dioxide 29 BUN 37 H Creatinine 2.18 H Glucose 81 Calcium 8.2 L - ABG Interpretation ABG results: PT/INR, D-dimer PT 12.5 Seconds (9.4-12.1) H 11/08/17 04:43 Consult Discharge Plan - Plan Instructions: Peptic Ulcer (DC), Anemia (DC) Additional Instructions: DO NOT TAKE COUMADIN AT HOME Take all other medications as prescribed Take Iron over the counter supplements twice per day with stool softener Avoid Ibuprofen and other NSAID medications Return to ER or PCP if you are vomiting blood, see blood in your stool, become lightheaded or have recurrent falls at home. Referrals: Oni Olvera MD [Primary Care Provider] - 11/14/17 1:15 pm <Rogelio Ayala - Last Filed: 11/09/17 07:46> Date of Encounter: 11/08/17 - Constitutional Vitals: Temp Pulse Resp BP Pulse Ox 97.6 F 73 16 134/70 97 11/08/17 15:22 11/08/17 16:12 11/08/17 16:12 11/08/17 16:12 11/08/17 16:12 Internal Medicine: Result - Labs CBC & Chem 7: 11/08/17 04:43 11/08/17 04:43 - ABG Interpretation ABG results: PT/INR, D-dimer PT 12.5 Seconds (9.4-12.1) H 11/08/17 04:43 - Attending Attestation I conducted a face to face diagnostic evaluation of this patient and my medical decision-making was reviewed with the Resident Physician, Dr Moncho Schneider. I agree with the documented findings, disposition and treatment plan as described except to the extent set forth below: Patient presented to the hospital with GI bleed. She is status post EGD and colonoscopy. No source of bleeding found. Warfarin was held. INR is back to normal. She responded well to transfusion. On exam she is in no acute distress awake alert and oriented 3. Heart is irregular. Lungs are clear. We will advance diet. Check hemoglobin and hematocrit in the morning. Transfuse if hemoglobin below 8. Rogelio Ayala MD
--- NOTE | 2017-11-08 11:36 | Anesthesia Evaluation PreOp ---
Date of Encounter: 11/08/17 Time of Encounter: 11:34 - Past History Planned Operation: Colonoscopy Cardiac History: Denies any Significant Hx Pulmonary History: COPD, Other (PE) SPECIAL PROCEDURES TECH History: Denies Any Significant HX Other Medical History: Renal (Stage III CRD), GERD, Other (Bladder CA) Anesthesia History: No Prior Anesthetic Complications, Past Anesthesia (Cancer sx, IVC filter) : No Alcohol Use: none Drug use: none Medications and Allergies Albuterol Sulfate [Albuterol Inhaler] 2 puff IH Q4H PRN 11/06/17 [History] Calcitriol [Rocaltrol] 0.25 mcg PO Q48H 11/06/17 [History] Cyanocobalamin (Vitamin B-12) [Vitamin B12] 1,000 mcg PO DAILY 11/06/17 [History ] Ergocalciferol (VITAMIN D2) [Vitamin D2] 50,000 unit PO QWEEK 11/06/17 [History] Fluticasone Propionate [Flovent Hfa] 1 puff IH BID 11/06/17 [History] Montelukast [Singulair] 10 mg PO DAILY 11/06/17 [History] Omeprazole [PriLOSEC] 20 mg PO DAILY 11/06/17 [History] Salmeterol Xinafoate [Serevent Diskus] 1 puff IH Q12H 11/06/17 [History] Warfarin [Coumadin] 3 mg PO DAILY 11/06/17 [History] 3 Allergy/AdvReac Type Severity Reaction Status Date / Time Penicillins Allergy See Verified 12/04/16 11:00 Comments prednisone Allergy See Verified 12/04/16 11:00 Comments - Meds/Allergy Pre-op Review Medications Reviewed: Yes Allergies Reviewed: Yes Beta Blockers on Current Med List: No Anesthesia Results - Labs 11/08/17 04:43 11/08/17 04:43 ECHO 11/18/2014 EF 45-50%, mild , severe mitral annular calcification, mild LV diastolic dysfunction mild global LV systolic dysfunction - Imaging EKG: report reviewed (SINUS RHYTHM BORDERLINE LEFT AXIS DEVIATION LEFT VENTRICULAR HYPERTROPHY AND ST-T CHANGE) Anesthesia Exam O2 Sat Weight 76.2 kg O2 Sat by Pulse Oximetry 99 O2 Sat by Pulse Oximetry 99 O2 Sat by Pulse Oximetry 100 O2 Sat by Pulse Oximetry 99 O2 Sat by Pulse Oximetry 100 Vital Signs Temp Pulse Resp BP Pulse Ox 97.4 F L 87 18 120/66 98 11/06/17 10:22 11/06/17 10:22 11/06/17 10:22 11/06/17 10:22 11/06/17 10:22 Vital Signs/O2 Sat, Most Current Temp Pulse Resp BP Pulse Ox 98.0 F 76 14 122/78 99 11/08/17 06:47 11/08/17 06:47 11/08/17 06:47 11/08/17 06:47 11/08/17 06:47 Height: 5'3'' Weight: 167 NPO (# of Hours): > 8 hrs Pain Scale: 0 Pain Scale Used: Numeric (1 - 10) - HEENT Pupil (Motor): Pupils equal, EOMI - SPECIAL PROCEDURES TECH LOC: Oriented SPECIAL PROCEDURES TECH Motor: Normal RUE, Normal LUE, Normal RLE, Normal LLE, Normal Face SPECIAL PROCEDURES TECH Sensory: Normal: RUE, LUE, RLE, LLE, Face - Cardiac Rhythm: Regular Murmur: None JVD: No Carotid Bruit: No - Pulmonary Breath Sounds: bilateral Clear Respiratory Effort: Symmetrical Anesthesia Assess/Plan ASA Score: 4 Modified [place] Scale for Level of Consciousness: Cooperative, oriented, and tranquil Anesthetic Plan: MAC Autologous Blood: Yes Monitoring Plan: Standard Monitors Recovery Plan: Other
[2017-11-08] MEDS ORDERED: Propofol 500 MG/50 ML INFUS..BTL ONE (12:51)
[2017-11-08] MEDS ORDERED: Lidocaine -MPF 2% 2 ML VIAL ONE (12:51)
--- NOTE | 2017-11-08 13:02 | Anesthesia Evaluation Post Op ---
Date of Encounter: 11/08/17 Time of Encounter: 13:00 - Vital Signs Vital Signs: Vital Signs/O2 Sat, Most Current Temp Pulse Resp BP Pulse Ox 97.9 F 82 16 120/101 96 11/08/17 12:16 11/08/17 12:16 11/08/17 12:16 11/08/17 12:16 11/08/17 12:16 - Lungs Lungs: Clear Ascult./Percussion - Airway Airway: Non-obstructed - Cardiovascular Regular Rate - Mental Status Mental Status: Alert & Oriented, Answers Appropriately - Pain Pain Scale: 0 Pain Scale used: Numeric (1 - 10) - Nausea Vomiting Nausea Vomiting: Not Present - Discharge PostOp Status: Transfer Patient to floor (awake,VSS, no anesthetic complications )
[2017-11-08 15:23] VITALS: BP 134/70
--- NOTE | 2017-11-08 15:51 | Physician Discharge Referral ---
Home Health/Hosp Referral Info Transfer to: Home Health Provider in Charge Post Discharge: PCP - Diagnosis (1) Anemia due to blood loss Priority: Primary Status: Acute (2) Supratherapeutic INR Priority: Primary Status: Acute (3) Acute kidney injury superimposed on chronic kidney disease Priority: Secondary Status: Acute (4) GERD (gastroesophageal reflux disease) Priority: Secondary Status: Acute (5) Recurrent deep vein thrombosis (DVT) Priority: Secondary Status: Chronic (6) COPD (chronic obstructive pulmonary disease) Priority: Secondary Status: Chronic (7) HTN (hypertension) Priority: Secondary Status: Acute (8) DVT prophylaxis Priority: Secondary Status: Acute - Respiratory Orders Smoking Cessation: Smoking cessation has been advised. For more information, call the [employer] Quit Line at 4-572-PFHL-NOW. - Diet/Nutrition Diet/Nutrition Orders: Regular - Activity Activity Orders: Ambulate (with assistance, needs PT at home) - Services Needed Following services are medically necessary services: Nursing (medication rec. DO NOT TAKE COUMADIN), Physical Therapy, Occupational Therapy - Transfer Medications Home Medications: Albuterol Sulfate [Albuterol Inhaler] 2 puff IH Q4H PRN 11/06/17 [History] Calcitriol [Rocaltrol] 0.25 mcg PO Q48H 11/06/17 [History] Cyanocobalamin (Vitamin B-12) [Vitamin B12] 1,000 mcg PO DAILY 11/06/17 [History ] Ergocalciferol (VITAMIN D2) [Vitamin D2] 50,000 unit PO QWEEK 11/06/17 [History] Fluticasone Propionate [Flovent Hfa] 1 puff IH BID 11/06/17 [History] Montelukast [Singulair] 10 mg PO DAILY 11/06/17 [History] Omeprazole [PriLOSEC] 20 mg PO DAILY 11/06/17 [History] Salmeterol Xinafoate [Serevent Diskus] 1 puff IH Q12H 11/06/17 [History] Warfarin [Coumadin] 3 mg PO DAILY 11/06/17 [History] Allergies/Adverse Reactions: 3 Allergy/AdvReac Type Severity Reaction Status Date / Time Penicillins Allergy See Verified 12/04/16 11:00 Comments prednisone Allergy See Verified 12/04/16 11:00 Comments Certification: Further, I certify that my clinical findings support that this patient is homebound (i.e. absences from home require considerable and taxing effort and are for medical reasons or confucianism services or infrequently or short duration when for other reasons) because: Homebound Reason: Patient requires assistance of a person or device to safely leave home Attestation: My signature below is to certify that this patient is under my care and that I, or nurse practitioner, or a physician's executive chef assistant working with me, has a face-to -face encounter with this patient.
--- NOTE | 2017-11-08 15:54 | Discharge Summary ---
<Moncho Schneider - Last Filed: 11/08/17 15:52> Date of Encounter: 11/08/17 Time of Encounter: 15:52 - Discharge Diagnosis (1) Anemia due to blood loss Priority: Primary Status: Acute (2) Supratherapeutic INR Priority: Primary Status: Resolved (3) Stomach ulcer Priority: Primary Status: Acute Comments: Non-bleeding ulcer on endoscopy. Likely the culprit for the sudden drop in Hgb and melanotic stools Qualifiers: Gastric ulcer chronicity: acute Gastric ulcer complication status: with hemorrhage Qualified Code(s): K25.0 - Acute gastric ulcer with hemorrhage (4) Acute kidney injury superimposed on chronic kidney disease Priority: Secondary Status: Chronic (5) GERD (gastroesophageal reflux disease) Priority: Secondary Status: Acute Qualifiers: Esophagitis presence: esophagitis presence not specified Qualified Code(s) : K21.9 - Gastro-esophageal reflux disease without esophagitis (6) Recurrent deep vein thrombosis (DVT) Priority: Secondary Status: Chronic (7) COPD (chronic obstructive pulmonary disease) Priority: Secondary Status: Chronic Qualifiers: COPD type: unspecified COPD Qualified Code(s): J44.9 - Chronic obstructive pulmonary disease, unspecified (8) HTN (hypertension) Priority: Secondary Status: Acute Qualifiers: Hypertension type: essential hypertension Qualified Code(s): I10 - Essential (primary) hypertension (9) DVT prophylaxis Priority: Secondary Status: Acute - Discharge Medications Home Medications: Albuterol Sulfate [Albuterol Inhaler] 2 puff IH Q4H PRN 11/06/17 [History] Calcitriol [Rocaltrol] 0.25 mcg PO Q48H 11/06/17 [History] Cyanocobalamin (Vitamin B-12) [Vitamin B12] 1,000 mcg PO DAILY 11/06/17 [History ] Ergocalciferol (VITAMIN D2) [Vitamin D2] 50,000 unit PO QWEEK 11/06/17 [History] Fluticasone Propionate [Flovent Hfa] 1 puff IH BID 11/06/17 [History] Montelukast [Singulair] 10 mg PO DAILY 11/06/17 [History] Omeprazole [PriLOSEC] 20 mg PO DAILY 11/06/17 [History] Salmeterol Xinafoate [Serevent Diskus] 1 puff IH Q12H 11/06/17 [History] Allergies/Adverse Reactions: 3 Allergy/AdvReac Type Severity Reaction Status Date / Time Penicillins Allergy See Verified 12/04/16 11:00 Comments prednisone Allergy See Verified 12/04/16 11:00 Comments Date of admission: 11/06/17 17:40 Primary care physician: Oni Olvera MD Consults: 11/08/17 13:58 Consult to Occupational Therapy [CONS] Routine Comment: Evaluate, develop and implement POC Reason for Consult: Weakness Consult to Physical Therapy [CONS] Routine Comment: Evaluate, develop and implement POC Reason for Consult: weakness Discharging clinician: Rogelio Ayala Anticipated date of discharge: 11/08/17 - Patient Status Disposition: Left Against Medical Advice Condition: Good Functional capacity at discharge: independent ambulation (unable to assess with PT due to patient leaving AMA, PT with home health) Overall status at discharge: patient is progressing back to baseline - Discharge Instructions Instructions: Peptic Ulcer (DC), Anemia (DC) Follow Up With: Oni Olvera MD [Primary Care Provider] - 11/14/17 1:15 pm Additional Instructions: DO NOT TAKE COUMADIN AT HOME Take all other medications as prescribed Take Iron over the counter supplements twice per day with stool softener Avoid Ibuprofen and other NSAID medications Return to ER or PCP if you are vomiting blood, see blood in your stool, become lightheaded or have recurrent falls at home. - Diet and Activity Activity: as per physical therapy Diet: advance to your usual diet Interval History: Ms. Jim is a very pleasant 82 year old female with a past medical history of recurrent DVT on Coumadin, uterine/bladder cancer s/p treatment, lung cancer s/p lobectomy, cecal cancer s/p cecal resection, COPD, HTN, GERD, osteoporosis and CKD who presents to the [facility] Emergency Department with a chief complaint of lightheadedness. She states that she had fall at home today after feeling "dizzy". Patient fell to her buttocks. No LOC reported and no history of this previously. On arrival to the emergency department, her vital signs were stable, INR 5.8, PT 64, hgb 5.8 and trop 0.04. Stool occult blood positive with melanotic stools on exam. EKG unremarkable. She was given IVF, 2 units of PRBC and Vit K. GI consulted. On evaluation, she states that she is taking her Warfarin 3mg as directed. She goes on to state that she has been experiencing dark colored stools. No hemoptysis or hematochezia. Last known ECHO was 11/18/2014 with EF 45-50%, mild , severe mitral annular calcification, mild LV diastolic dysfunction and mild global LV systolic dysfunction. Most recent colonoscopy was in 2012 and found external hemorrhoids, diverticulosis, and functional ileo-colonic anastamosis. Patient was admitted to the ICU for close monitoring and had a total of 3 units of PRBCS and 2 units of FFP. Coumadin was held, Hgb keerthi to 8.4 and INR normalized to 1.3. GI performed upper and lower endoscopy and only pertinent finding was a non-bleeding ulcer in stomach. She was subsequently transferred to med/surg post-operatively. PT/OT were scheduled for later today or tomorrow morning for evaluation prior to discharge, but Ms. Jim is demanding to leave against medical advice. Thorough risks for leaving AMA were given and patient continued to proceed. All discharge instructions were vocalized and she understands to not take coumadin and start taking iron supplements twice per day. Home health set up for nursing, OT and PT for further care management. AMA papers were signed. Hospital course: Ms. Jim is a 82 year old female - Time Spent with Patient Total time spent providing and/or coordinating discharge services: - Constitutional Vitals: Temp Pulse Resp BP Pulse Ox 97.6 F 73 16 134/70 97 11/08/17 15:22 11/08/17 15:22 11/08/17 15:22 11/08/17 15:22 11/08/17 15:22 General appearance: Present: cooperative, A&O X 3, no acute distress, answers questions appropriately - Head Head exam: Present: atraumatic, normocephalic - Eye Eye exam: Present: EOMI, normal appearance - ENT ENT exam: Present: mucous membranes moist - Neck Neck exam general surgery: Present: supple, trachea midline - Respiratory Respiratory exam: Present: CTAB. Absent: respiratory distress - Cardiovascular Cardiovascular exam: Present: RRR - GI/Abdominal GI/Abdominal exam: Present: normal bowel sounds, soft. Absent: tenderness - Extremities Exam Extremities exam: Present: warm. Absent: tenderness - Neurological Exam Neurological exam: Present: alert, oriented X3, no focal deficits - Psychiatric Psychiatric exam: Present: anxious (wants to leave) - Skin Skin exam: Present: dry, normal color, warm <Rogelio Ayala - Last Filed: 11/09/17 08:00> Date of Encounter: 11/08/17 Date of admission: 11/06/17 17:40 Primary care physician: Oni Olvera MD Consults: 11/08/17 13:58 Consult to Occupational Therapy [CONS] Routine Comment: Evaluate, develop and implement POC Reason for Consult: Weakness Consult to Physical Therapy [CONS] Routine Comment: Evaluate, develop and implement POC Reason for Consult: weakness Hospital course: Ms. Jim is a 82 year old female - Time Spent with Patient Total time spent providing and/or coordinating discharge services: - Constitutional Vitals: Temp Pulse Resp BP Pulse Ox 97.6 F 73 16 134/70 97 11/08/17 15:22 11/08/17 16:12 11/08/17 16:12 11/08/17 16:12 11/08/17 16:12 - Attending Attestation I conducted a face to face diagnostic evaluation of this patient and my medical decision-making was reviewed with the Resident Physician, Dr Moncho Schneider. I agree with the documented findings, disposition and treatment plan as described except to the extent set forth below: Patient presented to the hospital with GI bleed. She is status post EGD and colonoscopy. No source of bleeding found. Warfarin was held. INR is back to normal. She responded well to transfusion. On exam she is in no acute distress awake alert and oriented 3. Heart is irregular. Lungs are clear. She is very insistent about going home today. I have explained in detail the risks of leaving the hospital and communicated that she would be leaving AGAINST MEDICAL ADVICE. She understands the risks of bleeding, falls, increased morbidity. Upon my evaluation this morning she has this decision-making capacity regarding her departure from the hospital. Rogelio Ayala MD
== END 2017-11-08 16:27 | disposition left against medical advice (07) | DRG 378 ==
LOC: 3ANU 10:18 → EMEROO 10:18 → 3ANU 14:50 → ICNU 17:35 → SUATTDRO 17:40 → 3ANU 11-07 17:24
PROVIDERS: ADMIT Internal Medicine; ATTEND Internal Medicine

== ENCOUNTER 2018-10-22 18:46 | Inpatient (IN) ==
--- NOTE | 2018-10-22 19:34 | Emergency Department Note ---
Disposition Clinical Impression: Hypokalemia, Hypomagnesemia, Elevated troponin I level Disposition: Admitted As Inpatient Condition: Good Time of Disposition: 22:45 Recheck wound or abnormal lab - General Chief Complaint: ED Recheck/Abnormal Lab/Rx Stated Complaint: sent for low potassium Time Seen by Provider: 10/22/18 19:09 Source: patient, EMS Mode of arrival: EMS Limitations: no limitations Nursing Notes Reviewed: Yes Vital Signs Reviewed: Yes - History of Present Illness HPI Narrative: 83-year-old female with history of bladder cancer, VTE s/p IVC filter presents to the emergency department with low potassium. She states she went to her primary care providers appointment today Dr. Olvera for routine labs. Her potassium was "dangerously low." She was instructed to come here to emergency department for evaluation. She otherwise denies any other complaints such as lightheadedness, chest pain, shortness of breath, abdominal pain, nausea, vomiting. She denies any recent illness. She denies any prior history of any low potassium. She does not take any supplements. Pt Subjective Complaint: abnormal lab(s) - Related Data Home Medications Medication Instructions Recorded Confirmed Calcitriol [Rocaltrol] 0.25 mcg PO Q48H 11/06/17 10/07/18 Ergocalciferol (VITAMIN D2) 50,000 unit PO TH 11/06/17 10/07/18 [Vitamin D2] Fluticasone Propionate [Flovent 1 puff IH BID 11/06/17 10/07/18 Hfa] Cyanocobalamin (Vitamin B-12) 1,000 mcg PO DAILY 08/14/18 10/07/18 [Vitamin B12] Aspirin 81 mg PO DAILY 09/26/18 10/07/18 Oxygen 2 l IH AD PRN 09/26/18 10/07/18 Potassium Chloride 20 meq PO DAILY 09/26/18 10/07/18 Previous Rx's Medication Instructions Recorded Furosemide [Lasix] 20 mg PO DAILY 30 Days #30 tablet 09/30/18 Sulfamethoxazole/Trimeth DS 1 each PO DAILY #3 tablet 10/07/18 [Bactrim DS] Allergies Allergy/AdvReac Type Severity Reaction Status Date / Time ciprofloxacin Allergy Rash Verified 10/07/18 09:03 Penicillins Allergy See Verified 10/07/18 09:03 Comments prednisone Allergy See Verified 10/07/18 09:03 Comments All systems ED: reviewed and negative except as stated. Review of Systems: As Per HPI Constitutional: Denies: fever, chills Cardiovascular: Denies: chest pain Respiratory: Denies: cough Gastrointestinal: Denies: abdominal pain, nausea, vomiting Musculoskeletal: Denies: back pain Integumentary: Denies: rash, abrasion Neurological: Denies: weakness, numbness Endocrine: Denies: fatigue Past Medical History - Past Medical History Attestation: Yes The following information was validated with the patient. Source: patient Medical history: Reports: cancer, DVT, hypertension, pulmonary embolus, other Surgical history: Reports: cancer surgery, IVC filter Psychiatric history: Reports: no psych history CDL SERVICE TECHNICIAN history: Reports: no CDL SERVICE TECHNICIAN history - Social History Smoking Status: Former smoker Smokeless Tobacco Status: No Alcohol use: Reports: none Drug use: Reports: none Physical Exam - General Limitations: no limitations General appearance: alert, in no apparent distress - Head Head exam: atraumatic, normocephalic, normal inspection - Eye Eye exam: Present: normal appearance, PERRL, EOMI - ENT ENT exam: normal exam, normal oropharynx, mucous membranes moist - Neck Neck exam: Present: normal inspection, full ROM, trachea midline - Chest Chest inspection: Present: normal inspection, symmetric chest wall rise - Respiratory Respiratory exam: Present: normal lung sounds bilaterally - Cardiovascular Cardiovascular exam: Present: regular rate, normal rhythm, normal heart sounds, systolic murmur - Expanded Cardiovascular Exam Peripheral pulses: 2+: radial (R), radial (L) - Abdominal Exam Abdominal exam: Present: soft, Non-Tender, normal bowel sounds. Absent: tenderness, distention, guarding, rebound, rigidity - Extremities Exam Extremities exam: Present: normal inspection, full ROM. Absent: tenderness, pedal edema - Neurological Exam Neurological exam: Present: alert, oriented X3 - Psychiatric Psychiatric exam: Present: normal affect, normal mood - Skin Skin exam: Present: warm, dry, intact, normal color, other (Multiple ecchymoses to her extremities due to thin-skin) Course Course Narrative: Patients potassium 2.2. Will perform EKG and obtain magnesium level. Will put replete with 40 mg once PO and IV for total of 80. She has chronic renal in sufficiency that appears at baseline. Patient will be admitted for further monitoring and repletion. - Reevaluation(s) Reevaluation #1: Magnesium 1.4. Patient will be replayed it for her magnesium. EKG did not reveal any ischemic findings. Her troponin continues to be chronically elevated 0.07. Again patient does not have any chest pain. Patient will be admitted for further monitoring of her hypokalemia - Consultations Consultation #1: Spoke with on-call hospitalist celia Miles to admit for hypokalemia. Requests to add troponin to blood tests. Patient is asymptomatic denying any chest pain or shortness of breath. Review for lab shows chronic elevated troponin. The hospitalist will follow the lab results. Time: 19:53 Vital Signs Temperature 98.7 F 10/22/18 18:53 Pulse Rate 83 10/22/18 18:53 Respiratory Rate 18 10/22/18 18:53 Blood Pressure 97/63 10/22/18 18:53 O2 Sat by Pulse Oximetry 100 10/22/18 18:53 Temperature 98.7 F 10/22/18 18:53 Pulse Rate 84 10/22/18 22:23 Respiratory Rate 20 10/22/18 22:23 Blood Pressure 97/49 10/22/18 22:23 O2 Sat by Pulse Oximetry 97 10/22/18 22:23 Oxygen Delivery Oxygen Delivery Room Air Recheck wound or abnormal lab - MDM Narrative Medical decision making narrative: Patient was discussed with my attending physician who agrees with ED management and final disposition. They independently evaluated the patient. Please refer to their attestation to this encounter for additional information. This note was generated by [employer] voice recognition software and as a result grammatical or spelling errors may occur using this program. - Medical Records Medical records reviewed: Yes I reviewed the patient's medical records. - Lab Data Lab results reviewed: Yes I reviewed the patient's lab results. Result diagrams: 10/22/18 19:58 10/22/18 22:00 Lab Results 10/22/18 10/22/18 Range/Units 19:58 19:58 WBC 12.7 H (4.3-11.1) K/mcL RBC 3.30 L (3.82-4.97) M/mcL Hgb 9.9 L (11.5-15.4) g/dL Hct 29.4 L (35.3-44.9) % MCV 89.1 (83.0-100.0) fL MCH 30.0 (28.0-33.3) pg MCHC 33.7 (31.6-35.5) g/dL RDW 15.0 H (11.5-14.5) % Plt Count 186 (140-400) K/mcL MPV 12.5 H (9.4-12.4) fL Immature Gran % 0.4 (0-4) % Seg Neutrophils % 79.5 % Lymphocytes % 8.8 % Monocytes % 9.9 % Eosinophils % 0.9 % Basophils % 0.5 % Neutrophils # 10.1 H (1.6-8.9) K/mcL Lymphocytes # 1.1 (0.6-4.6) K/mcL Monocytes # 1.3 (0.0-1.3) K/mcL Eosinophils # 0.1 (0.0-0.6) K/mcL Basophils # 0.1 (0.0-0.2) K/mcL Sodium 137 (136-145) mEq/L Potassium 2.3 L* (3.5-5.1) mEq/L Chloride 101 (98-107) mEq/L Carbon Dioxide 26 (23-29) mEq/L BUN 50 H (8-23) mg/dL Creatinine 2.68 H (0.60-1.20) mg/dL Est GFR ( Amer) 21 L (> 60) Est GFR (Non-Af Amer) 17 L (> 60) BUN/Creatinine Ratio 19 (6-26) Glucose 92 (70-105) mg/dL Calculated Osmolality 297 (280-300) Calcium 7.7 L (8.6-10.3) mg/dL Magnesium 1.4 L (1.6-2.6) mg/dL Troponin I 0.07 H* (< 0.04) ng/mL - EKG Data EKG attestation: Yes I reviewed and interpreted this EKG. EKG results narrative: EKG performed 2020 normal sinus rhythm 88 bpm there is some ST elevations in the inferior leads and chronic ST depressions similar to prior EKG performed 09/26/2018. No acute ischemic changes. Patient is not complaining of any chest pain. Attestation Statement - Attestation Attestation: I, Jimmie Mclean, examined this patient and my medical decision-making was reviewed with the SHEEP HERDER/PA/Advanced Practice Nurse/Resident Physician. I agree with the documented findings, disposition and treatment plan as described except to the extent set forth below. 83-year-old female presents emergency Department with concerns of hypokalemia. Laboratory testing performed prior to arrival in the emergency department. Patient denied chest pain, shortness of breath, weakness, fatigue, syncope. Patient is hypokalemic on repeat evaluation. Patient also had an elevated trop onin however this is near her baseline. Patient has elevated creatinine however it is also near her baseline. Patient did have hypomagnesemia and was given replacement in the emergency department she will be admitted to the hospitalist for further care and evaluation.
[2018-10-22 20:37] LABS: Calcium 7.7 mg/dL (8.6-10.3); Magnesium 1.4 mg/dL (1.6-2.6); Potassium 2.3 mEq/L (3.5-5.1)
[2018-10-22 20:45] LABS: Troponin I 0.07 ng/mL (< 0.04)
[2018-10-22 22:03] LABS: Basophils # 0.1 K/mcL (0.0-0.2); Basophils % 0.5 %; Eosinophils # 0.1 K/mcL (0.0-0.6); Eosinophils % 0.9 %; Hematocrit 29.4 % (35.3-44.9); Hemoglobin 9.9 g/dL (11.5-15.4); Immature Granulocytes % 0.4 % (0-4); Lymphocytes # 1.1 K/mcL (0.6-4.6); Lymphocytes % 8.8 %; Mean Corpuscular HGB Conc 33.7 g/dL (31.6-35.5); Mean Corpuscular Volume 89.1 fL (83.0-100.0); Mean Platelet Volume 12.5 fL (9.4-12.4); Monocytes # 1.3 K/mcL (0.0-1.3); Monocytes % 9.9 %; Neutrophils # 10.1 K/mcL (1.6-8.9); Platelet Count 186 K/mcL (140-400); Segmented Neutrophils % 79.5 %
[2018-10-22] MEDS ORDERED: Potassium Chloride Elixir 20 MEQ/15 ML UDC PO ONE (22:42)
--- NOTE | 2018-10-22 22:50 | Internal Med History&Physical ---
<Thomas Raymond - Last Filed: 10/23/18 19:42> Date of Encounter: 10/23/18 Time of Encounter: 22:50 Internal Medicine - H&P: HPI Chief complaint: Hypokalemia Admitted From: Home ([facility]) History of present illness: Ms. Jim is a 83 year old female who is presenting with hypokalemia. She was at her PCP's office today for routine labs when they incidentally found the patient was hypokalemic. At ED today she was found to have potassium of 2.2. She received 40mg PO of potassium. She wasn't able to start IV potassium until the past hour because of issues obtaining IV access. She has started IV recently. EKG done at ED shows adalberto cute changes. Her troponins are elevated at 0.06. BP was 97/63 which appears to be baseline for patient. Patient denies fever, headache, n/v, confusion, CP, paliptations, SOB, cough, abdominal pain, muscle pain or cramps, changes in stooling, changes in urination. Past Med Surg Social Fam HX - Past Medical History Medical history: cancer, DVT, hypertension, pulmonary embolus, other Additional medical history: bladder cancer Psychiatric history: no psych history - Past Surgical History Surgical History: cancer surgery, IVC filter Additional surgical history: lobectomy, [place] filter - Social History Smoking Status: Former smoker Smokeless Tobacco Status: No Alcohol use: none Drug use: none - Family History Father Living Status: Internal Medicine - H&P: Meds Calcitriol [Rocaltrol] 0.25 mcg PO Q48H 11/06/17 [History] Ergocalciferol (VITAMIN D2) [Vitamin D2] 50,000 unit PO TH 11/06/17 [History] Fluticasone Propionate [Flovent Hfa] 1 puff IH BID 11/06/17 [History] Cyanocobalamin (Vitamin B-12) [Vitamin B12] 1,000 mcg PO DAILY 08/14/18 [History] Aspirin 81 mg PO DAILY 09/26/18 [History] Oxygen 2 l IH AD PRN 09/26/18 [History] Potassium Chloride 20 meq PO DAILY 09/26/18 [History] Furosemide [Lasix] 20 mg PO DAILY 30 Days #30 tablet 09/30/18 [Rx] Sulfamethoxazole/Trimeth DS [Bactrim DS] 1 each PO DAILY #3 tablet 10/07/18 [Rx] Allergy/AdvReac Type Severity Reaction Status Date / Time ciprofloxacin Allergy Rash Verified 10/07/18 09:03 Penicillins Allergy See Verified 10/07/18 09:03 Comments prednisone Allergy See Verified 10/07/18 09:03 Comments All Systems PM: A 10-system review of systems was performed and is negative for pertinent findings except as documented above in the HPI. - Constitutional Constitutional: no fever(s), no lethargy, no malaise, no weakness - Breasts Breasts: change in shape - Cardiovascular Cardiovascular ROS IM: no chest pain, no lightheadedness, no palpitations - Respiratory Respiratory: no cough, no dyspnea, no wheezing - Gastrointestinal Gastrointestinal: no abdominal pain, no constipation, no cramping, no diarrhea, no loose stools - Genitourinary Genitourinary: no dysuria, no flank pain, no hematuria, no urinary frequency, no urinary urgency - Musculoskeletal Musculoskeletal ROS IM: no muscle cramps, no muscle weakness - Neurological Neurological ROS: no confusion, no focal weakness, no weakness - Psychiatric Psychiatric: no confusion - Constitutional Vitals: Temp Pulse Resp BP Pulse Ox 98.7 F 84 20 97/49 97 10/22/18 18:53 10/22/18 22:23 10/22/18 22:23 10/22/18 22:23 10/22/18 22:23 General appearance: Present: A&O X 3, pleasant, answers questions appropriately Exam: . - Head Head exam: Present: atraumatic, normal inspection - Eye Eye exam: Present: EOMI, normal appearance - Neck Neck exam general surgery: Present: supple, trachea midline - Respiratory Respiratory exam: Present: CTAB - Cardiovascular Cardiovascular exam: Present: diastolic murmur, RRR, +S1, +S2, systolic murmur - GI/Abdominal GI/Abdominal exam: Absent: tenderness - Extremities Exam Extremities exam: Present: normal inspection, mottling, warm. Absent: cyanotic, tenderness - Neurological Exam Neurological exam: Present: alert, oriented X3, no focal deficits - Psychiatric Psychiatric exam: Present: normal affect - Skin Skin exam: Present: dry, intact, mottled - Other Additional findings: Nomral musclar tension - no spasms noted. Internal Med - H&P Results - Labs CBC & Chem 7: 10/22/18 19:58 10/23/18 12:47 Labs: Short CBC 10/22/18 Range/Units 19:58 WBC 12.7 H (4.3-11.1) K/mcL Hgb 9.9 L (11.5-15.4) g/dL Hct 29.4 L (35.3-44.9) % Plt Count 186 (140-400) K/mcL Neutrophils # 10.1 H (1.6-8.9) K/mcL BMP 10/22/18 19:58 Sodium 137 Potassium 2.3 L* Chloride 101 Carbon Dioxide 26 BUN 50 H Creatinine 2.68 H Glucose 92 Calcium 7.7 L Cardiac Enzymes 10/22/18 Range/Units 19:58 Troponin I 0.07 H* (< 0.04) ng/mL - Assessment and plan (1) Hypokalemia Current Visit: Yes Status: Acute Assessment and plan: 83 YO F with incidental finding of hypokalemia of 2.2 found while doing blood work at her PCP's office. She appears stable with no muscle spasms or cardiac symptoms including CP or palpitations. EKG showed no significant changes. Patient was given oral and IV potassium to replete. WIll trend Potassium levels every 2-3 hourss (2) DVT prophylaxis Current Visit: No Status: Acute Assessment and plan: subcutaneous heparin. (3) Elevated troponin Current Visit: No Status: Acute Assessment and plan: Patient has normally elevated troponins due to kidney disease. - Time Spent With Patient Total time spent is greater than 50% in coordination of care (as documented) at patient's floor/unit and/or counseling patient: <Sandra Olsen A - Last Filed: 10/24/18 01:24> Date of Encounter: 10/23/18 Internal Medicine - H&P: HPI History of present illness: Ms. Jim is a 83 year old female Past Med Surg Social Fam HX - Family History Father Living Status: Mother Hx Family Cardiac Disorders: Yes Brother Hx Family Cancer: Yes (unknown type) All Systems PM: A 10-system review of systems was performed and is negative for pertinent findings except as documented above in the HPI. - Constitutional Vitals: Temp Pulse Resp BP Pulse Ox 97.4 F L 72 20 121/66 96 12/05/18 07:13 10/23/18 07:13 10/23/18 07:13 10/23/18 07:13 10/23/18 07:13 Internal Med - H&P Results - Labs CBC & Chem 7: 10/22/18 19:58 10/23/18 12:47 Labs: Short CBC 10/22/18 Range/Units 19:58 WBC 12.7 H (4.3-11.1) K/mcL Hgb 9.9 L (11.5-15.4) g/dL Hct 29.4 L (35.3-44.9) % Plt Count 186 (140-400) K/mcL Neutrophils # 10.1 H (1.6-8.9) K/mcL BMP 10/22/18 10/22/18 10/23/18 19:58 22:00 02:05 Sodium 137 136 139 Potassium 2.3 L* 2.3 L* 3.4 L D Chloride 101 100 106 Carbon Dioxide 26 24 21 L BUN 50 H 50 H 51 H Creatinine 2.68 H 2.66 H 2.65 H Glucose 92 90 95 Calcium 7.7 L 7.8 L 7.5 L 10/23/18 05:11 Sodium 138 Potassium 2.7 L Chloride 105 Carbon Dioxide 23 BUN 51 H Creatinine 2.54 H Glucose 89 Calcium 7.8 L Cardiac Enzymes 10/22/18 10/23/18 Range/Units 19:58 02:05 Troponin I 0.07 H* 0.06 H* (< 0.04) ng/mL - Assessment and plan (1) Elevated troponin I level Current Visit: Yes Status: Acute (2) DVT prophylaxis Current Visit: No Status: Acute (3) DVT (deep venous thrombosis) Current Visit: No Status: Acute Qualifiers: DVT location: lower extremity Affected thrombotic vein of extremity: popliteal Chronicity: chronic Laterality: left Qualified Code(s): I82.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 (4) CKD (chronic kidney disease) stage 4, GFR 15-29 ml/min Current Visit: No Status: Chronic (5) Diastolic CHF Current Visit: No Status: Acute Qualifiers: Heart failure chronicity: acute on chronic Qualified Code(s): I50.33 - Acute on chronic diastolic (congestive) heart failure (6) Hypokalemia Current Visit: Yes Status: Acute (7) Hypomagnesemia Current Visit: Yes Status: Acute (8) Anemia Current Visit: Yes Status: Acute Qualifiers: Qualified Code(s): D64.9 - Anemia, unspecified - Time Spent With Patient Total time spent is greater than 50% in coordination of care (as documented) at patient's floor/unit and/or counseling patient: - Attending Attestation I performed a history and physical examination of the patient and discussed his management with the resident. I reviewed the resident's note. In short patient is an 83-year-old female with past medical history of hypertension, multiple cancers and DVTs who was referred to the ED by her primary care physician after findings of abnormal potassium of 2.2. Patient was found to be asymptomatic wit h no significant EKG changes noted. Patient was also noted to have an elevated troponin which appears to be chronically elevated in the setting of chronic kidney disease. Patient denied any chest pain nor was there any EKG changes noted. There was difficulty obtaining IV access and the patient after multiple attempts and as such patient was unable to receive IV fluids as intended. Potassium was repleted by mouth. We will repeat potassium level
[2018-10-22 22:56] LABS: Calcium 7.8 mg/dL (8.6-10.3); Potassium 2.3 mEq/L (3.5-5.1)
[2018-10-22] MEDS ORDERED: Acetaminophen 325 MG TABLET PO PRN (23:22)
[2018-10-22] MEDS ORDERED: 0.9 % Sodium Chloride 500 ML IVC SCH (23:30)
[2018-10-23 02:35] LABS: Calcium 7.5 mg/dL (8.6-10.3); Potassium 3.4 mEq/L (3.5-5.1)
[2018-10-23] MEDS ORDERED: Naloxone 0.4 MG/ML INJ IVP PRN (04:04)
[2018-10-23 05:40] LABS: Calcium 7.8 mg/dL (8.6-10.3); Potassium 2.7 mEq/L (3.5-5.1)
--- NOTE | 2018-10-23 07:53 | Internal Med Progress Note ---
Hospitalist Progress Note - Encounter Date of Encounter: 10/23/18 Time of Encounter: 11:00 - Subjective Interval History: Patient sent over by primary care provider due to hypokalemia and found to have a potassium of 2.3 and magnesium of 1.4 on admission Potassium and magnesium supplementation this morning Patient also found to have elevated troponins which have trended downward - Exam Vitals: Temp Pulse Resp BP Pulse Ox 97.4 F L 72 20 121/66 96 10/23/18 07:13 10/23/18 07:13 10/23/18 07:13 10/23/18 07:13 10/23/18 07:13 Exam: Gen.: Nonacute distress, alert and oriented 3 ENT: Mucosal membranes moist Respiratory: Lungs are clear to auscultation bilaterally without any wheezing rhonchi or rales Cardiovascular: Normal S1 and S2 regular rate rhythm no murmurs rubs or gallops Abdomen: Soft, nontender and nondistended with positive bowel sounds Extremities: No lower extremity edema Skin: Normal color - Assessment and Plan (1) Hypokalemia Current Visit: Yes Status: Acute Assessment and Plan: Patient with potassium of 2.3 on admission and repeat potassium this morning 2.7 Continuing potassium replacement and monitoring patient on telemetry (2) Hypomagnesemia Current Visit: Yes Status: Acute Assessment and Plan: Patient with magnesium of 1.4 on admission Continuing magnesium supplementation (3) Elevated troponin I level Current Visit: Yes Status: Acute Assessment and Plan: Patient with elevated troponin of 0.07 on admission which has trended downward to 0.06 Continue to monitor on telemetry (4) Diastolic CHF Current Visit: No Status: Acute Assessment and Plan: Continue patient's home dose of oral Lasix (5) CKD (chronic kidney disease) stage 4, GFR 15-29 ml/min Current Visit: No Status: Chronic Assessment and Plan: Creatinine at baseline; continue to monitor (6) Anemia Current Visit: Yes Status: Acute Assessment and Plan: Patient with a hemoglobin of 9.9 this morning Will continue to monitor (7) DVT (deep venous thrombosis) Current Visit: No Status: Acute Assessment and Plan: Patient with history of PE and DVT with IVC filter. (8) DVT prophylaxis Current Visit: No Status: Acute Assessment and Plan: SCDs due to history of GI bleeding - Time Spent with Patient Total time spent is greater than 50% in coordination of care (as documented) at patient's floor/unit and/or counseling patient: Internal Medicine: Result - Labs CBC & Chem 7: 10/22/18 19:58 10/23/18 12:47 Labs: Short CBC 10/22/18 Range/Units 19:58 WBC 12.7 H (4.3-11.1) K/mcL Hgb 9.9 L (11.5-15.4) g/dL Hct 29.4 L (35.3-44.9) % Plt Count 186 (140-400) K/mcL Neutrophils # 10.1 H (1.6-8.9) K/mcL BMP 10/22/18 10/22/18 10/23/18 19:58 22:00 02:05 Sodium 137 136 139 Potassium 2.3 L* 2.3 L* 3.4 L D Chloride 101 100 106 Carbon Dioxide 26 24 21 L BUN 50 H 50 H 51 H Creatinine 2.68 H 2.66 H 2.65 H Glucose 92 90 95 Calcium 7.7 L 7.8 L 7.5 L 10/23/18 05:11 Sodium 138 Potassium 2.7 L Chloride 105 Carbon Dioxide 23 BUN 51 H Creatinine 2.54 H Glucose 89 Calcium 7.8 L Cardiac Enzymes 10/22/18 10/23/18 Range/Units 19:58 02:05 Troponin I 0.07 H* 0.06 H* (< 0.04) ng/mL Consult Discharge Plan - Plan Referrals: Oni Olvera MD [Primary Care Provider] - (4) Diastolic CHF Qualifiers: Heart failure chronicity: acute on chronic Qualified Code(s): I50.33 - Acute on chronic diastolic (congestive) heart failure (7) DVT (deep venous thrombosis) Qualifiers: DVT location: lower extremity Affected thrombotic vein of extremity: popliteal Chronicity: chronic Laterality: left Qualified Code(s): I82.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
--- NOTE | 2018-10-23 13:00 | Electrocardiograph Report ---
[place] [id number] Test Date: 2018-10-22 Pat Name: Maria Del Rosario Jim Department: [id number] Room: 2A16 Gender: F Burr Sander: : 1935 Requested By: Eliseo Carmen Order Number: [id number] Reading MD: Kenya Armenta Measurements Intervals [place] Rate: 88 P: 57 MN: 156 QRS: -63 QRSD: 143 T: 85 QT: 423 QTc: 512 Interpretive Statements Sinus rhythm RBBB and LAFB Left ventricular hypertrophy Electronically Signed On 10-23-2018 12:58:48 EST by Kenya Armenta
[2018-10-23] MEDS ORDERED: *HR* Heparin 5,000 UNIT/ML VIAL SQ SCH (18:00)
[2018-10-24 03:56] LABS: Magnesium 1.7 mg/dL (1.6-2.6); Potassium 3.7 mEq/L (3.5-5.1)
[2018-10-24] MEDS ORDERED: *HR* Enoxaparin 40 MG/0.4 ML SYRINGE SQ SCH (06:00)
[2018-10-24 10:49] VITALS: BP 113/70
--- NOTE | 2018-10-24 13:45 | Discharge Summary ---
- NOTES TO OUTPATIENT PROVIDER Notes to Outpatient Provider: Follow-up with primary care provider for monitoring and management of hypokalemia/hypomagnesemia Date of Encounter: 10/24/18 Time of Encounter: 11:00 - Discharge Diagnosis (1) Elevated troponin I level Priority: Secondary Status: Acute (2) DVT (deep venous thrombosis) Priority: Secondary Status: Acute Qualifiers: DVT location: lower extremity Affected thrombotic vein of extremity: popliteal Chronicity: chronic Laterality: left Qualified Code(s): I82.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 (3) CKD (chronic kidney disease) stage 4, GFR 15-29 ml/min Priority: Secondary Status: Chronic (4) Diastolic CHF Priority: Secondary Status: Acute Qualifiers: Heart failure chronicity: acute on chronic Qualified Code(s): I50.33 - Acute on chronic diastolic (congestive) heart failure (5) Hypokalemia Priority: Primary Status: Acute (6) Hypomagnesemia Priority: Primary Status: Acute (7) Anemia Priority: Secondary Status: Acute Qualifiers: Qualified Code(s): D64.9 - Anemia, unspecified Hospital course: Patient is an 83-year-old female with past medical history significant for hypertension and PE/DVT presents to the ER on 10/23/18 from primary care provider due to hypokalemia and hypomagnesemia. In the ER, patient was found to have a potassium of 2.3 and magnesium 1.4. She was admitted to the medical surgical floor for electrolyte replacement. During patients overnight hospital stay for hypokalemia and hypomagnesemia resolved with replacements. Patient will be discharged to start potassium chloride daily and to follow-up with her primary care provider for monitoring of potassium and magnesium levels. - Time Spent with Patient Total time spent providing and/or coordinating discharge services: Less than 30 minutes - Discharge Medications Prescriptions: Potassium Chloride 20 meq PO DAILY 30 Days #30 tab.er.prt Home Medications: Ergocalciferol (VITAMIN D2) [Vitamin D2] 50,000 unit PO TH 11/06/17 [History] Fluticasone Propionate [Flovent Hfa] 1 puff IH BID 11/06/17 [History] Cyanocobalamin (Vitamin B-12) [Vitamin B12] 1,000 mcg PO DAILY 08/14/18 [History] Aspirin 81 mg PO DAILY 09/26/18 [History] Oxygen 2 l IH AD PRN 09/26/18 [History] Furosemide [Lasix] 20 mg PO DAILY 30 Days #30 tablet 09/30/18 [Rx] Albuterol Sulfate [Proair Hfa] 1 puff IH BID PRN 10/24/18 [History] Clindamycin HCl 150 mg PO Q6H 10/24/18 [History] Potassium Chloride 20 meq PO DAILY 30 Days #30 tab.er.prt 10/24/18 [Rx] Allergies/Adverse Reactions: Allergy/AdvReac Type Severity Reaction Status Date / Time ciprofloxacin Allergy Rash Verified 10/07/18 09:03 Penicillins Allergy See Verified 10/07/18 09:03 Comments prednisone Allergy See Verified 10/07/18 09:03 Comments Date of admission: 10/23/18 19:06 Primary care physician: Oni Olvera MD Consults: 10/23/18 00:43 Consult to Nutrition [CONS] Routine Comment: Consulting Provider: NUTRITION Reason for Dietary Consult: MST Score Consult to Communications Manager [CONS] Routine Reason for SW Consult: Lives alone, multiple falls, non compliant with meds 10/23/18 10:56 PT [Consult to Physical Therapy] [CONS] Routine Comment: Evaluate, develop and implement POC Reason for Consult: weakness Does patient have active BEDREST order?: No Is patient medically & hemodynamically stable?: Yes - Constitutional Vitals: Temp Pulse Resp BP Pulse Ox 97.9 F 100 16 113/70 94 10/24/18 10:47 10/24/18 10:47 10/24/18 10:47 10/24/18 10:47 10/24/18 10:47 General appearance: Present: A&O X 3, pleasant, answers questions appropriately Exam: Gen.: Nonacute distress, alert and oriented 3 Skin: Normal color - Patient Status Disposition: Home, Self-Care Condition: Good - Discharge Instructions Instructions: Hypokalemia (GEN), Hypomagnesemia (GEN) Follow Up With: Oni Olvera MD [Primary Care Provider] - 10/31/18 9:45 am (Please follow up as schedule...)
--- NOTE | 2018-10-24 13:46 | Physician Discharge Referral ---
Home Health/Hosp Referral Info Transfer to: Home Health - Diagnosis (1) Elevated troponin I level Status: Acute (2) DVT prophylaxis Status: Acute (3) DVT (deep venous thrombosis) Status: Acute (4) CKD (chronic kidney disease) stage 4, GFR 15-29 ml/min Status: Chronic (5) Diastolic CHF Status: Acute (6) Hypokalemia Status: Acute (7) Hypomagnesemia Status: Acute (8) Anemia Status: Acute - Respiratory Orders Smoking Cessation: Smoking cessation has been advised. For more information, call the [place] Tobacco Quit Line at 7-220-FVCW-NOW. - Services Needed Following services are medically necessary services: Nursing, Home Health Aide, Physical Therapy, Occupational Therapy - Transfer Medications Prescriptions: Potassium Chloride 20 meq PO DAILY 30 Days #30 tab.er.prt Home Medications: Ergocalciferol (VITAMIN D2) [Vitamin D2] 50,000 unit PO TH 11/06/17 [History] Fluticasone Propionate [Flovent Hfa] 1 puff IH BID 11/06/17 [History] Cyanocobalamin (Vitamin B-12) [Vitamin B12] 1,000 mcg PO DAILY 08/14/18 [History] Aspirin 81 mg PO DAILY 09/26/18 [History] Oxygen 2 l IH AD PRN 09/26/18 [History] Furosemide [Lasix] 20 mg PO DAILY 30 Days #30 tablet 09/30/18 [Rx] Albuterol Sulfate [Proair Hfa] 1 puff IH BID PRN 10/24/18 [History] Clindamycin HCl 150 mg PO Q6H 10/24/18 [History] Potassium Chloride 20 meq PO DAILY 30 Days #30 tab.er.prt 10/24/18 [Rx] Allergies/Adverse Reactions: Allergy/AdvReac Type Severity Reaction Status Date / Time ciprofloxacin Allergy Rash Verified 10/07/18 09:03 Penicillins Allergy See Verified 10/07/18 09:03 Comments prednisone Allergy See Verified 10/07/18 09:03 Comments Certification: Further, I certify that my clinical findings support that this patient is homebound (i.e. absences from home require considerable and taxing effort and are for medical reasons or jewish services or infrequently or short duration when for other reasons) because: Homebound Reason: Patient requires assistance of a person or device to safely leave home Attestation: My signature below is to certify that this patient is under my care and that I, or nurse practitioner, or a physician's buyer assistant working with me, has a [id number] encounter with this patient.
== END 2018-10-24 15:34 | disposition home or self-care (01) | DRG 640 ==
LOC: 2ANU 18:46 → EMEROOARM 18:46 → SUATTDRO 20:24 → 2ANU 22:56
PROVIDERS: ADMIT Internal Medicine; ATTEND Hospitalist